=== PATIENT | female | born 1990 | race Caucasian/White ===

== ENCOUNTER 2019-02-17 09:50 | Emergency (ER) | payer MEDICAID, OTHER ==
[~2019-02-17] VITALS: Ht 165.1 cm; Wt 70.8 kg
--- OUTSIDE RECORDS SUMMARY | 2019-02-17 10:00 | XMS REPORT ---
Author Author Gretchen Santos [facility] Address [address] [place], [place] [id number] Care Team Providers Care Reservation Manager Name Role Phone Gretchen Santos PCP Unavailable Allergies and Adverse Reactions Name Reaction Notes codeine sulfate Plan of Treatment Not available. Medications Active Name Start Date Estimated Completion Date SIG Comments ibuprofen 800 mg oral tablet 03/18/2017 take 1 tablet (800 mg) by oral route 3 times per day with food Augmentin 500-125 mg oral tablet 05/21/2017 take 1 tablet by oral route every 12 hours for 10 days Name Start Date Expiration Date SIG Comments Flonase Allergy Relief 50 mcg/actuation nasal spray,suspension 03/08/2015 05/07/2015 inhale 2 puffs by nasal route 2 times a day for 30 days Discontinued Name Start Date Discontinued Date SIG Comments Depo-Provera Intramuscular Suspension 150 mg/mL 03/08/2015 inject 150 mg by intramuscular route every 3 months Valtrex Oral Tablet 500 mg 03/18/2017 take 1 tablet by oral route 2 times a day will use cheaper med acyclovir 400 mg oral tablet 03/18/2017 05/21/2017 take 1 tablet (400 mg) by oral route 2 times per day Metrogel Vaginal 0.75 % vaginal gel 03/18/2017 05/21/2017 insert 1 applicatorful (37.5 mg) by vaginal route once daily at bedtime for 5 days Problem List Description Status Onset Herpes genitalis Active Vital Signs Date Time BP-Sys(mm[Hg] BP-Masha(mm[Hg]) HR(bpm) RR(rpm) Temp WT HT HC BMI BSA BMI Percentile O2 Sat(%) 05/21/2017 2:49:00 PM 118 mmHg 74 mmHg 74 bpm 20 rpm 98.7 F 141.375 lbs 64 in 24.27 kg/m2 1.70 m2 100 % 03/18/2017 4:07:00 PM 113 mmHg 77 mmHg 75 bpm 98 F 139.125 lbs 64 in 23.8805 kg/m 1.6881 m 03/08/2015 2:07:00 PM 110 mmHg 68 mmHg 70 bpm 20 rpm 97.7 F 131.25 lbs 65 in 21.84 kg/m2 1.65 m2 100 % 08/30/2011 2:39:00 PM 122 mmHg 80 mmHg 72 bpm 155 lbs 65 in 25.7931 kg/m 1.7957 m Social History Name Description Comments Single Alcohol Current some day Occassionaly Tobacco Never smoker Student (College) History of Procedures Date Ordered Description Order Status 08/30/2011 12:00 AM HERPES SIMPLEX TYPE 1 TEST Reviewed 03/08/2015 12:00 AM ASSAY OF FREE THYROXINE Reviewed 03/08/2015 12:00 AM ASSAY THYROID STIM HORMONE Reviewed Results Summary Date and Description Results 03/08/2015 5:02 PM FREE T4 1.05 TSH 0.710 uIU/mL History Of Immunizations Not available. History of Past Illness Name Date of Onset Comments Herpes genitalis Anxiety Vulvar Lesion Aug 30 2011 2:49PM Allergic rhinitis Mar 08 2015 2:24PM Cystic acne vulgaris Mar 08 2015 2:24PM Cold intolerance Mar 08 2015 2:24PM Anxiety Mar 08 2015 2:24PM Vaginitis Mar 18 2017 4:10PM Acute vaginitis Mar 18 2017 4:10PM Other specified bacterial agents as the cause of diseases classified elsewhere Mar 18 2017 4:10PM Herpes genitalia Mar 18 2017 4:10PM Dysmenorrhea Mar 18 2017 4:10PM Acute maxillary sinusitis, recurrence not specified May 21 2017 2:56PM Payers Insurance Name Company Name Plan Name Plan Number Policy Number Policy Group Number Start Date BCBS [employer] [place] [id number] N/A [employer] - [facility] - [place] State Plan Amer[employer] - [facility] [place] State Plan [id number] N/A BCBS [employer] [place] [id number] N/A History of Encounters Visit Date Visit Type Provider 05/21/2017 Office visit Gretchen Santos MD 03/18/[address] Aliza Mayers MD 03/08/[address] Bushra Whitney DO 08/30/2011 Office visit Jamar Macedo MD
--- OUTSIDE RECORDS SUMMARY | 2019-02-17 10:00 | XMS REPORT ---
Author Author [facility] Organization [facility] Address [address] [place], [place] [id number] Care Team Providers Care Linux System Admin Name Role Phone PCP Unavailable Allergies and Adverse Reactions Name Reaction Notes codeine sulfate Plan of Treatment Planned Activity Comments Planned Date Planned Time Plan/Goal ASSAY OF FREE THYROXINE 03/08/2015 12:00 AM ASSAY THYROID STIM HORMONE 03/08/2015 12:00 AM Medications Active Name Start Date Estimated Completion Date SIG Comments Valtrex Oral Tablet 500 mg take 1 tablet by oral route 2 times a day Flonase Allergy Relief 50 mcg/actuation nasal spray,suspension 03/08/2015 05/07/2015 inhale 2 puffs by nasal route 2 times a day for 30 days Discontinued Name Start Date Discontinued Date SIG Comments Depo-Provera Intramuscular Suspension 150 mg/mL 03/08/2015 inject 150 mg by intramuscular route every 3 months Problem List Description Status Onset Herpes genitalis Active Vital Signs Date Time BP-Sys(mm[Hg] BP-Masha(mm[Hg]) HR(bpm) RR(rpm) Temp WT HT HC BMI BSA BMI Percentile O2 Sat(%) 03/08/2015 2:07:00 PM 110 mmHg 68 mmHg [...] 12:00 AM HERPES SIMPLEX TYPE 1 TEST Returned 03/08/2015 12:00 AM ASSAY OF FREE THYROXINE Ordered 03/08/2015 12:00 AM ASSAY THYROID STIM HORMONE Ordered Results Summary Not available. History Of Immunizations Not available. History of Past Illness Name Date of Onset Comments Herpes genitalis Vulvar Lesion Aug 30 2011 2:49PM Allergic rhinitis Mar 08 2015 2:24PM Cystic acne vulgaris Mar 08 2015 2:24PM Cold intolerance Mar 08 2015 2:24PM Anxiety Mar 08 2015 2:24PM Payers Insurance Name Company Name Plan Name Plan Number Policy Number Policy Group Number [id number] N/A History of Encounters Visit Date Visit Type Provider 03/08/[address] Bushra Whitney DO 08/30/2011 Office visit Jamar Macedo MD
--- OUTSIDE RECORDS SUMMARY | 2019-02-17 10:00 | XMS REPORT ---
Author Author Aliza Mayers [facility] Address [address] [place], [place] [id number] Care Team Providers Care Chief Diversity Officer Name Role Phone Aliza Mayers PCP Unavailable Allergies and Adverse Reactions Name Reaction Notes codeine sulfate Plan of Treatment Not available. Medications Active Name Start Date Estimated Completion Date SIG Comments acyclovir 400 mg oral tablet 03/18/2017 take 1 tablet (400 mg) by oral route 2 times per day ibuprofen 800 mg oral tablet 03/18/2017 take 1 tablet (800 mg) by oral route 3 times per day with food Metrogel Vaginal 0.75 % vaginal gel 03/18/2017 insert 1 applicatorful (37.5 mg) by vaginal route once daily at bedtime for 5 days Name Start Date Expiration Date SIG [...] times a day will use cheaper med Problem List Description Status Onset Herpes genitalis Active Vital Signs Date Time BP-Sys(mm[Hg] BP-Masha(mm[Hg]) HR(bpm) RR(rpm) Temp WT HT HC BMI BSA BMI Percentile O2 Sat(%) 03/18/2017 4:07:00 PM 113 mmHg 77 mmHg 75 bpm 98 F 139.125 lbs 64 in 23.88 kg/m2 1.69 m2 03/08/2015 2:07:00 PM 110 mmHg 68 mmHg 70 bpm 20 rpm 97.7 F 131.25 lbs 65 in 21.8409 kg/m 1.6524 m 100 % 08/30/2011 2:39:00 PM 122 mmHg 80 mmHg 72 bpm 155 lbs 65 in 25.79 kg/m2 1.80 m2 Social History Name Description Comments Single Alcohol [...] 2017 4:10PM Dysmenorrhea Mar 18 2017 4:10PM Payers Insurance Name Company Name Plan Name Plan Number Policy Number Policy Group Number Start Date [facility] [place] State Plan [facility] State Plan [id number] N/A [facility] [id number] N/A History of Encounters Visit Date Visit Type Provider 03/18/[address] Aliza Mayers MD 03/08/[address] Bushra Whitney DO 08/30/2011 Office visit Jamar Macedo MD
--- OUTSIDE RECORDS SUMMARY | 2019-02-17 10:00 | XMS REPORT ---
Author Author Aliza Mayers [facility] Address [address] [place], [place] [id number] Care Team Providers Care Figure Model Name Role Phone RianaAliza PCP Allergies and Adverse Reactions Name Reaction Notes codeine sulfate Plan of Treatment Planned Activity Comments Planned Date Planned Time Plan/Goal CBC W/ AUTO DIFF (RFLX MAN DIFF IF IND). 02/11/2019 12:00 AM TSH 02/11/2019 12:00 AM Medications Name Start Date Expiration Date SIG Comments Flonase Allergy Relief 50 mcg/actuation nasal spray,suspension 03/08/2015 05/07/2015 inhale 2 puffs by nasal route 2 times a day for 30 days Diflucan 150 mg oral tablet 11/13/2018 11/14/2018 take 1 tablet (150 mg) by oral route once for 1 day Metrogel Vaginal 0.75 % vaginal gel 11/18/2018 11/23/2018 insert 1 applicatorful (37.5 mg) by vaginal route once daily at bedtime for 5 days Discontinued Name Start Date Discontinued Date [...] once daily at bedtime for 5 days Augmentin 500-125 mg oral tablet 05/21/2017 08/05/2017 take 1 tablet by oral route every 12 hours for 10 days ibuprofen 800 mg oral tablet 10/07/2017 02/12/2018 take 1 tablet (800 mg) by oral route 3 times per day with food ibuprofen 800 mg oral tablet 10/14/2018 11/18/2018 take 1 tablet (800 mg) by oral route 3 times per day with food Problem List Description Status Onset Herpes genitalis Active Vital Signs Date Time BP-Sys(mm[Hg] BP-Masha(mm[Hg]) HR(bpm) RR(rpm) Temp WT HT HC BMI BSA BMI Percentile O2 Sat(%) 02/11/2019 3:56:00 PM 109 mmHg 64 mmHg 69 bpm 97.7 F 157.5 lbs 64 in 27.0345 kg/m 1.7961 m 11/18/2018 4:04:00 PM 105 mmHg 67 mmHg 72 bpm 99 F 160.25 lbs 64 in 27.51 kg/m2 1.81 m2 10/07/2017 4:07:00 PM 117 mmHg 74 mmHg 73 bpm 18 rpm 98.4 F 144 lbs 64 in 24.72 kg/m2 1.72 m2 05/21/2017 2:49:00 PM 118 mmHg 74 mmHg 74 bpm 20 rpm 98.7 F 141.375 lbs 64 in 24.2667 kg/m 1.7017 m 100 % 03/18/2017 4:07:00 PM 113 mmHg 77 mmHg 75 bpm 98 F 139.125 lbs 64 in 23.88 kg/m2 1.69 m2 03/08/2015 2:07:00 PM 110 mmHg 68 mmHg 70 bpm 20 rpm 97.7 F 131.25 lbs 65 in 21.8409 kg/m 1.6524 m 100 % 08/30/2011 2:39:00 PM 122 mmHg 80 mmHg 72 bpm 155 lbs 65 in 25.7931 kg/m 1.80 m2 Social History Name Description Comments Single Alcohol Current some day Occassionaly Tobacco Never smoker Student (College) History of Procedures Date Ordered Description Order Status 08/30/2011 12:00 AM HERPES SIMPLEX TYPE 1 TEST Reviewed 10/07/2017 12:00 AM SPECIMEN HANDLING OFFICE-LAB Reviewed 10/07/2017 12:00 AM CYTOPATH C/V THIN LAYER Reviewed 11/18/2018 12:00 AM SYPHILIS TEST NON-TREP QUAL Reviewed 11/18/2018 12:00 AM SYPHILIS TEST NON-TREP QUANT Reviewed 11/18/2018 12:00 AM TREPONEMA PALLIDUM Reviewed 11/18/2018 12:00 AM HTLV/HIV CONFIRMJ ANTIBODY Reviewed 11/18/2018 12:00 AM ACUTE HEPATITIS PANEL Reviewed 11/18/2018 12:00 AM CHLAMYDIA CULTURE Reviewed 11/18/2018 12:00 AM N.GONORRHOEAE DNA AMP PROB Reviewed 11/18/2018 12:00 AM SMEAR WET MOUNT SALINE/INK Reviewed 11/18/2018 12:00 AM DETECT AGENT NOS DNA AMP Reviewed 11/18/2018 12:00 AM TRICHOMONAS VAGINALIS AMPLIF Reviewed 03/08/2015 12:00 AM ASSAY OF FREE THYROXINE Reviewed 03/08/2015 12:00 AM ASSAY THYROID STIM HORMONE Reviewed Results Summary Date and Description Results 03/08/2015 5:02 PM FREE T4 1.05 TSH 0.710 uIU/mL 11/18/2018 5:00 PM HIV AG/AB COMBO 0.11 RPR Non Reactive Hep C Virus Ab <0.1 HBsAg Screen Negative History Of Immunizations Not available. 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 Oct 07 2017 4:09PM STD exposure Nov 18 2018 4:05PM Acute vaginitis Nov 18 2018 4:05PM Other specified bacterial agents as the cause of diseases classified elsewhere Nov 18 2018 4:05PM Encounter for gynecological examination (general) (routine) with abnormal findings Nov 18 2018 4:05PM Fatigue Feb 11 2019 4:00PM Premenstrual dysphoria Feb 11 2019 4:00PM Payers Insurance Name Company Name Plan Name Plan Number Policy Number Policy Group Number Start Date [employer] Better [employer] - [facility] Aetna Better Health - [place] [id number] N/A BCBS [facility] [id number] N/A [employer] - [place] - [place] State Plan Amer[employer] - [facility] State Plan [id number] N/A BCBS [employer] [facility] [place] [id number] N/A History of Encounters Visit Date Visit Type Provider 02/11/[address] Aliza Mayers MD 11/18/2018 Office visit 11/18/[address] Aliza Mayers MD 10/07/[address] Aliza Mayers MD 05/21/2017 Office visit Gretchen Santos MD 03/18/[address] Aliza Mayers MD 03/08/[address] Bushra Whitney DO 08/30/2011 Office visit Jamar Macedo MD
--- OUTSIDE RECORDS SUMMARY | 2019-02-17 10:00 | XMS REPORT ---
Author Author Aliza Mayers Organization [facility] Address [address] [place], [place] [id number] Care Team Providers Care Fold Skiver Name Role Phone Aliza Mayers PCP Allergies and Adverse Reactions Name Reaction Notes codeine sulfate Plan of Treatment Planned Activity Comments Planned Date Planned Time Plan/Goal RPR test with reflex to quantitative RPR and Treponema pallidum antibody assay 11/18/2018 12:00 AM RPR test with reflex to quantitative RPR and Treponema pallidum antibody assay 11/18/2018 12:00 AM RPR test with reflex to quantitative RPR and Treponema pallidum antibody assay 11/18/2018 12:00 AM HIV 1 + 2 ab ser w reflex to Western blot conf 11/18/2018 12:00 AM Hepatitis B and C screen 11/18/2018 12:00 AM Chlamydia 11/18/2018 12:00 AM Gonorrhea 11/18/2018 12:00 AM WET PREP 11/18/2018 12:00 AM TRICHOMONAS AMPLIFIED 11/18/2018 12:00 AM TRICHOMONAS AMPLIFIED 11/18/2018 12:00 AM Medications Active Name Start Date Estimated Completion Date SIG Comments Metrogel Vaginal 0.75 % vaginal gel 11/18/2018 [...] by oral route once for 1 day Discontinued Name Start Date Discontinued Date SIG [...] HC BMI BSA BMI Percentile O2 Sat(%) 11/18/2018 4:04:00 PM 105 mmHg 67 mmHg 72 bpm 99 F 160.25 lbs 64 in 27.5066 kg/m 1.8117 m 10/07/2017 4:07:00 PM 117 mmHg 74 mmHg [...] 12:00 AM CYTOPATH C/V THIN LAYER Reviewed 03/08/2015 12:00 AM ASSAY OF FREE [...] specified May 21 2017 2:56PM 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/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 Oct 07 2017 4:09PM STD exposure Nov 18 2018 4:05PM Acute vaginitis Nov 18 2018 4:05PM Other specified bacterial agents as the cause of diseases classified elsewhere Nov 18 2018 4:05PM Encounter for gynecological examination (general) (routine) with abnormal findings Nov 18 2018 4:05PM Payers Insurance Name Company Name Plan Name Plan Number Policy Number Policy Group Number Start Date Aetna Better Health - [facility] [employer] - [facility] [id number] N/A BCBS [facility] [id number] N/A Amer[employer] - [place] State [place] Amer[employer] - [facility] State Plan [id number] N/A BCBS [facility] [id number] N/A History of Encounters Visit Date Visit Type Provider 11/18/2018 Office visit 11/18/[address] Aliza Mayers MD 10/07/[address] Aliza Mayers MD 05/21/2017 Office visit Gretchen Santos MD 03/18/[address] Aliza Mayers MD 03/08/[address] Bushra Whitney DO 08/30/2011 Office visit Jamar Macedo MD
--- OUTSIDE RECORDS SUMMARY | 2019-02-17 10:00 | XMS REPORT ---
Author Author Aliza Mayers [facility] Address [address] [place] [id number] Care Team Providers Care Geometrician Name Role Phone Aliza Mayers PCP Allergies and Adverse Reactions Name Reaction Notes codeine sulfate Plan of Treatment Not available. 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 Aliza Mayers MD 05/21/2017 Office visit Gretchen Santos MD 03/18/[address] Aliza Mayers MD 03/08/[address] Bushra Whitney DO 08/30/2011 Office visit Jamar Macedo MD
--- OUTSIDE RECORDS SUMMARY | 2019-02-17 10:01 | XMS REPORT ---
Author Author INDIANA ATWOOD Organization [facility] Address [address] [place] [address] Care Team Providers Care Window Glass Cutter Off Name Role Phone INDIANA ATWOOD Unavailable PROBLEMS Type Condition ICD9-CM Code [id number] Code Onset Dates Condition Status SNOMED Code Problem Screening examination for venereal disease V74.5 Active 569298827 Problem Screening for malignant neoplasm of the cervix V76.2 Active 635819757 Problem Other general counseling and advice for contraceptive management V25.09 Active 046909397 Problem Unspecified contraceptive management V25.9 Active 139544468 Problem Special screening examination, human papillomavirus [HPV] V73.81 Active 900894116 Problem General counseling for prescription of oral contraceptives V25.01 Active 064284462758503 Problem Problems related to high-risk sexual behavior V69.2 Active 014872303 Problem Need for prophylactic vaccination and inoculation, Influenza V04.81 Active 733606379 Problem Other specified symptom associated with female genital organs 625.8 Active 033469344 Problem Candidiasis of vulva and vagina 112.1 Active 95966201 Problem Routine gynecological examination V72.31 Active 922873720738907 Problem Unspecified genital herpes 054.10 Active 76875370 Problem examination or test, positive result V72.42 Active 810419196 Problem Leukorrhea, not specified as infective 623.5 Active 441784640 Problem Unspecified vaginitis and vulvovaginitis 616.10 Active 829190061 Problem Acute sinusitis, unspecified 461.9 Active 35496147 Problem Allergic rhinitis due to pollen 477.0 Active 63072498 ALLERGIES No Information ENCOUNTERS Encounter Location Date Diagnosis [facility] [address] [facility] [id number], [place] [address] Jun, [facility] [address] [facility] [id number], [place] [address] Jun, Strep pharyngitis J02.0 and Sore throat J02.9 [facility] [address], [place] [address] 10 Mar, 2018 Acute nasopharyngitis J00 and Cough R05 [facility] [address]005[address], [place] [address] 15 Feb, 2018 Encounter for immunization Z23 [facility] [id number] [place] [address] 14 Oct, 2014 [facility] [id number] [place] [address] Oct, [facility] [id number] [place] [address] Sep, [facility] [id number] [place] [address] Sep, [facility] [id number] [place] [address] Sep, [facility] [id number] [place] [address] Sep, [facility] [id number] [place] [address] Sep, [facility] [id number] [place] [address] Aug, [facility] [id number] [place] [address] Aug, [facility] [address] [place] [address] Jul, [facility] [id number] [place] [address] Jul, [facility] [address], [place] [address] Jun, [facility] [id number] [place] [address] Jun, [facility] [place] [facility] [address] [id number] [place] [address] May, [facility] [place] [facility] [address] [id number] [place] [address] May, [facility] [place] [facility] [address] [facility] [id number] [place] [address] Apr, [facility] [place] [facility] [address] [id number] [place] [address] Apr, [facility] [place] [facility] [address] [id number] [place] [address] Apr, [facility] [place] [facility] [address] [id number] [place] [address] Apr, [facility] [place] [facility] [address] [id number] [place] [address] Apr, [facility] [place] [facility] [address] [id number] [place] [address] Apr, [facility] [place] [facility] [address] [id number] [place] [address] Jan, [facility] [place] [facility] [address] [facility] [id number] [place] [address] Jan, [facility] [place] [facility] [address] [id number], [place] [address] Dec, [facility] [place] [facility] [address] [id number], [place] [address] Dec, [facility] [place] [facility] [address] [id number] [place] [address] Dec, [facility] [address] [id number] [id number] Dec, [facility] [place] [facility] [address] [facility] [id number] [place] [address] Dec, [facility] [id number], [place] [id number] Oct, [facility] [address] [facility] [id number], [place] [address] Oct, [facility] [id number], [place] [id number] Jul, [facility] [address] [facility] [id number], [place] [address] Jul, [facility] [address] [facility] [id number], [place] [address] Apr, [facility] [id number] [place] [id number] Apr, [facility] [address] [id number], [place] [address] Apr, [facility] [address] [place] [address] Apr, [facility] [address] [id number], [place] [address] Apr, [facility] [id number], [place] [id number] Dec, [facility] [address] [id number], [place] [address] Oct, [facility] [address] [id number], [place] [address] Sep, [facility] [place] [facility] [address] [facility] [id number], [place] [address] Sep, [facility] [address] [id number], [place] [address] Aug, [facility] [address] [id number], [place] [address] Aug, [facility] [id number], [place] [id number] Aug, [facility] [address] [facility] [id number], [place] [address] Aug, [facility] [address] [id number], [place] [address] Aug, [facility] [id number][place] [id number] Aug, [facility] [address] [id number], [place] [address] Aug, [facility] [id number] [place] [id number] Aug, [facility] [id number] [place] [address] Apr, [facility] [address] [place] [address] Apr, [facility] [address] [id number], [place] [address] Apr, [facility] [address] [place] [address] Apr, [facility] [address] [id number], [place] [address] Apr, [facility] [id number], [place] [id number] Apr, [facility] [address] [id number], [place] [address] Apr, [facility] [id number], [place] [id number] Feb, [facility] [address] [id number] [address] Feb, [facility] [id number], [place] [id number] Dec, [facility] [address] [id number], [place] [address] Dec, [facility] [address]65100[place], [place] [address] Oct, [facility] [address]65100[place], [place] [address] Sep, [facility] [address]65100[place], [place] [address] Aug, [facility] [id number], [place] [id number] Aug, [id number] [id number] Jul, [address]00565[place] [id number] Jul, [address] [id number], [place] [address] Jul, [facility] [address]00565[place] [id number] Jul, IMMUNIZATIONS No Known Immunizations SOCIAL HISTORY Never Assessed REASON FOR VISIT PLAN OF CARE VITAL SIGNS MEDICATIONS Unknown Medications RESULTS No Results PROCEDURES No Known procedures INSTRUCTIONS MEDICATIONS ADMINISTERED No Known Medications MEDICAL (GENERAL) HISTORY Type Description Date Surgical History appendectomy 1994 Surgical History surgery for broken nose 2002 Surgical History tumor removed from spine at 6 mos old 1988 Surgical History 2010 Hospitalization History surgeries Hospitalization History fluid around lungs 2010
--- OUTSIDE RECORDS SUMMARY | 2019-02-17 10:01 | XMS REPORT ---
Author Author KULWINDER Loredo Organization [facility] Address [address] [place] [address] Care Team Providers Care Pcb Designer Name Role Phone KULWINDER Loredo Unavailable PROBLEMS Type Condition ICD9-CM Code LMF52-RS Code Onset Dates Condition Status SNOMED Code Problem Screening examination for venereal disease V74.5 Active 104422495 Problem Screening for malignant neoplasm of the cervix V76.2 Active 596489705 Problem Other general counseling and advice for contraceptive management V25.09 Active 003448887 Problem Unspecified contraceptive management V25.9 Active 859740027 Problem Special screening examination, human papillomavirus [HPV] V73.81 Active 963739211 Problem General counseling for prescription of oral contraceptives V25.01 Active 993063867277881 Problem Problems related to high-risk sexual behavior V69.2 Active 205783856 Problem Need for prophylactic vaccination and inoculation, Influenza V04.81 Active 965473663 Problem Other specified symptom associated with female genital organs 625.8 Active 484172502 Problem Candidiasis of vulva and vagina 112.1 Active 86679323 Problem Routine gynecological examination V72.31 Active 961440823464062 Problem Unspecified genital herpes 054.10 Active 22662931 Problem examination or test, positive result V72.42 Active 134484055 Problem Leukorrhea, not specified as infective 623.5 Active 999219407 Problem Unspecified vaginitis and vulvovaginitis 616.10 Active 166892495 Problem Acute sinusitis, unspecified 461.9 Active 10082781 Problem Allergic rhinitis due to pollen 477.0 Active 28166707 ALLERGIES No Information ENCOUNTERS Encounter Location Date Diagnosis [facility] [address] [facility] [id number] [address] Jun, [facility] [address] [facility] [id number], [place] [address] Jun, Strep pharyngitis J02.0 and Sore throat J02.9 [facility] [address]00565100[place], [place] [address] 10 Mar, 2018 Acute nasopharyngitis J00 and Cough R05 [facility] [id number] [place] [address] 15 Feb, 2018 Encounter for immunization Z23 [facility] [address] [address] 14 Oct, 2014 [facility] [id number] [place] [address] Oct, [facility] [id number] [place] [address] Sep, [facility] [id number] [place] [address] Sep, [facility] [id number] [place] [address] Sep, [facility] [id number] [place] [address] Sep, [facility] [id number] [place] [address] Sep, [facility] [id number] [place] [address] Aug, [facility] [id number] [place] [address] Aug, [facility] [id number] [place] [address] Jul, [facility] [id number] [place] [address] Jul, [facility] [id number] [place] [address] Jun, [facility] [id number] [place] [address] Jun, [facility] [place] [facility] [address] [id number] [place] [address] May, [facility] [place] [facility] [address] [id number] [place] [address] May, [facility] [place] [facility] [address] [facility] [id number] [place] [address] Apr, [facility] [place] [facility] [address] [id number] [place] [address] Apr, [facility] [place] [facility] [address] [id number] [place] [address] Apr, [facility] [place] [facility] [address] [id number] [place] [address] Apr, [facility] [place] [facility] [address] [facility] [id number] [place] [address] Apr, [facility] [place] [facility] [address] [id number] [place] [address] Apr, [facility] [place] [facility] [address] [facility] [id number] [place] [address] Jan, [facility] [place] [facility] [address] [facility] [id number] [place] [address] Jan, [facility] [place] [facility] [address] [facility] [id number], [place] [address] Dec, [facility] [place] [facility] [address] [facility] [id number], [place] [address] Dec, [facility] [place] [facility] [address] [id number], [place] [address] Dec, [facility] [id number] [place] [address] Dec, [facility] [place] [facility] [address] [facility] [id number] [address] Dec, [facility] [id number] [place] [id number] Oct, [facility] [address] [facility] [id number], [place] [address] Oct, [facility] [id number] [place], [place] [id number] Jul, [facility] [address] [facility] [id number], [place] [address] Jul, [facility] [address] [facility] [id number] [address] Apr, [facility] [id number] [place] [id number] Apr, [facility] [address] [id number], [place] [address] Apr, [facility] [id number] [place] [address] Apr, [facility] [address] [id number], [place] [address] Apr, [facility] [id number] [place] [address] Dec, [facility] [address] [id number], [place] [address] Oct, [facility] [place] [facility] [address] [id number], [place] [address] Sep, [facility] [place] [facility] [address] [facility] [id number], [place] [address] Sep, [facility] [place] [facility] [address] [id number], [place] [address] Aug, [facility] [place] [facility] [address] [facility] [id number], [place] [address] Aug, [facility] [id number] [place], [place] [id number] Aug, [facility] [address] [facility] [id number], [place] [address] Aug, [facility] [address] [facility] [id number] [address] Aug, 2012 [facility] [id number] [place] [id number] Aug, [facility] [address] [facility] [id number] [place] [address] Aug, [facility] [id number] [place] [id number] Aug, [facility] [address] [facility] [id number] [place] [address] Apr, [facility] [id number] [place] [address] Apr, [facility] [address] [facility] [id number], [place] [address] Apr, [facility] [id number] [place] [address] Apr, [facility] [address] [facility] [id number], [place] [address] Apr, [facility] [id number] [place], [place] [id number] Apr, [facility] [address] [facility] [id number][place] [address] Apr, [facility] [address] [id number] [place] [id number] Feb, [facility] [id number] [place], [place] [address] Feb, [facility] [id number] [place] [id number] Dec, [facility] [address] [id number], [place] [address] Dec, [facility] [address]00565100[place], [place] [address] Oct, [facility] [address]00565100[place], [place] [address] Sep, [facility] [address]00565100[place], [place] [address] Aug, [facility] [address]00565100[place] [id number] Aug, [address]00565100[place] [id number] Jul, [address]00565100[place] [id number] Jul, [facility] [address] [id number], [place] [address] Jul, [facility] [address]00565100[place] [id number] Jul, IMMUNIZATIONS No Known Immunizations SOCIAL HISTORY [...]
--- OUTSIDE RECORDS SUMMARY | 2019-02-17 10:01 | XMS REPORT ---
Author Author INDIANA ATWOOD Organization [facility] Address [address] [place] [address] Care Team Providers Care Dog Bather Name Role Phone INDIANA ATWOOD Unavailable PROBLEMS Type Condition ICD9-CM Code [id number] Code Onset Dates Condition Status SNOMED Code Problem Screening examination for venereal disease V74.5 Active 960633248 Problem Screening for malignant neoplasm of the cervix V76.2 Active 122670186 Problem Other general counseling and advice for contraceptive management V25.09 Active 041616708 Problem Unspecified contraceptive management V25.9 Active 418693152 Problem Special screening examination, human papillomavirus [HPV] V73.81 Active 129454548 Problem General counseling for prescription of oral contraceptives V25.01 Active 461434252142334 Problem Problems related to high-risk sexual behavior V69.2 Active 622332057 Problem Need for prophylactic vaccination and inoculation, Influenza V04.81 Active 673724714 Problem Other specified symptom associated with female genital organs 625.8 Active 775004764 Problem Candidiasis of vulva and vagina 112.1 Active 56885047 Problem Routine gynecological examination V72.31 Active 082446027581938 Problem Unspecified genital herpes 054.10 Active 46908945 Problem examination or test, positive result V72.42 Active 556928384 Problem Leukorrhea, not specified as infective 623.5 Active 708102333 Problem Unspecified vaginitis and vulvovaginitis 616.10 Active 505165770 Problem Acute sinusitis, unspecified 461.9 Active 31299285 Problem Allergic rhinitis due to pollen 477.0 Active 04954320 ALLERGIES No Information ENCOUNTERS Encounter Location Date Diagnosis [facility] [address] [facility] [id number] [address] Jun, [facility] [address] [facility] [id number], [place] [address] Jun, Strep pharyngitis J02.0 and Sore throat J02.9 [facility] [address] [address] 10 Mar, 2018 Acute nasopharyngitis J00 and Cough R05 [facility] [address]005[address], [place] [address] 15 Feb, 2018 Encounter for immunization Z23 [facility] [id number] [place] [address] 14 Oct, 2014 [facility] [id number] [place] [address] Oct, [facility] [id number] [place] [address] Sep, [facility] [id number] [place] [address] Sep, [facility] [id number] [place] [address] Sep, [facility] [id number] [place] [address] Sep, [facility] [id number] [place] [address] Sep, [facility] [id number] [place] [address] Aug, [facility] [id number] [place] [address] Aug, [facility] [address] [place] [address] Jul, [facility] [id number] [place] [address] Jul, [facility] [address], [place] [address] Jun, [facility] [id number] [place] [address] Jun, [facility] [place] [facility] [address] [id number] [place] [address] May, [facility] [place] [facility] [address] [id number] [place] [address] May, [facility] [place] [facility] [address] [facility] [id number] [place] [address] Apr, [facility] [place] [facility] [address] [id number] [place] [address] Apr, [facility] [place] [facility] [address] [id number] [place] [address] Apr, [facility] [place] [facility] [address] [id number] [place] [address] Apr, [facility] [place] [facility] [address] [id number] [place] [address] Apr, [facility] [place] [facility] [address] [id number] [place] [address] Apr, [facility] [place] [facility] [address] [id number] [place] [address] Jan, [facility] [place] [facility] [address] [facility] [id number] [place] [address] Jan, [facility] [place] [facility] [address] [id number], [place] [address] Dec, [facility] [place] [facility] [address] [id number][place] [address] Dec, [facility] [place] [facility] [address] [id number] [place] [address] Dec, [facility] [address] [id number] [id number] Dec, [facility] [place] [facility] [address] [facility] [id number] [place] [address] Dec, [facility] [id number][place] [id number] Oct, [facility] [address] [facility] [id number], [place] [address] Oct, [facility] [id number][place] [id number] Jul, [facility] [address] [facility] [id number], [place] [address] Jul, [facility] [address] [facility] [id number], [place] [address] Apr, [facility] [id number] [place] [id number] Apr, [facility] [address] [id number] [address] Apr, [facility] [address] [place] [address] Apr, [facility] [address] [id number], [place] [address] Apr, [facility] [id number][place] [id number] Dec, [facility] [address] [id number], [place] [address] Oct, [facility] [address] [id number], [place] [address] Sep, [facility] [place] [facility] [address] [facility] [id number], [place] [address] Sep, [facility] [address] [id number], [place] [address] Aug, [facility] [address] [id number], [place] [address] Aug, [facility] [id number], [place] [id number] Aug, [facility] [address] [facility] [id number], [place] [address] Aug, [facility] [address] [id number], [place] [address] Aug, [facility] [id number], [place] [id number] Aug, [facility] [address] [id number], [place] [address] Aug, [facility] [id number] [place] [id number] Aug, [facility] [id number] [place] [address] Apr, [facility] [address] [place] [address] Apr, [facility] [address] [id number], [place] [address] Apr, [facility] [address] [place] [address] Apr, [facility] [address] [id number], [place] [address] Apr, [facility] [id number], [place] [address] Apr, [facility] [address] [id number], [place] [address] Apr, [facility] [id number], [place] [id number] Feb, [facility] [address] [id number] [address] Feb, [facility] [id number], [place] [id number] Dec, [facility] [address] [id number], [place] [address] Dec, [facility] [address]65100[place], [place] [address] Oct, [facility] [address]00565100[place], [place] [address] Sep, [facility] [address]00565100[place], [place] [address] Aug, [facility] [id number], [place] [id number] Aug, [address]00565[place] [id number] Jul, [address]00565[place] [id number] Jul, [facility] [address] [id number], [place] [address] Jul, [facility] [address] [place] [address] [id number] Jul, IMMUNIZATIONS No Known Immunizations SOCIAL HISTORY Never Assessed REASON FOR VISIT PLAN OF CARE VITAL SIGNS Height 65 in 2014-08-19 Weight 132.9 lbs 2014-08-19 Temperature 98 degrees Fahrenheit 2014-08-19 Heart Rate 84 bpm 2014-08-19 Respiratory Rate 18 2014-08-19 Blood pressure systolic 118 mmHg 2014-08-19 Blood pressure diastolic 64 mmHg 2014-08-19 MEDICATIONS Unknown Medications RESULTS No Results PROCEDURES No Known procedures INSTRUCTIONS MEDICATIONS ADMINISTERED No Known Medications MEDICAL (GENERAL) HISTORY Type Description Date Surgical History appendectomy 1994 Surgical History surgery for broken nose 2002 Surgical History tumor removed from spine at 6 mos old 1988 Surgical History 2010 Hospitalization History surgeries Hospitalization History fluid around lungs 2010
--- OUTSIDE RECORDS SUMMARY | 2019-02-17 10:01 | XMS REPORT ---
Author Author KULWINDER Loredo Organization [facility] Address [address] [place] [address] Care Team Providers Care Computer Patternmaker Name Role Phone KULWINDER Loredo Unavailable PROBLEMS Type Condition ICD9-CM Code [id number] Code Onset Dates Condition Status SNOMED Code Problem Screening examination for venereal disease V74.5 Active 121442307 Problem Screening for malignant neoplasm of the cervix V76.2 Active 241101888 Problem Other general counseling and advice for contraceptive management V25.09 Active 167866661 Problem Unspecified contraceptive management V25.9 Active 886907585 Problem Special screening examination, human papillomavirus [HPV] V73.81 Active 093913819 Problem General counseling for prescription of oral contraceptives V25.01 Active 078355868316364 Problem Problems related to high-risk sexual behavior V69.2 Active 695597089 Problem Need for prophylactic vaccination and inoculation, Influenza V04.81 Active 437683619 Problem Other specified symptom associated with female genital organs 625.8 Active 429852843 Problem Candidiasis of vulva and vagina 112.1 Active 85953039 Problem Routine gynecological examination V72.31 Active 291939969474734 Problem Unspecified genital herpes 054.10 Active 07510908 Problem examination or test, positive result V72.42 Active 322815337 Problem Leukorrhea, not specified as infective 623.5 Active 811164922 Problem Unspecified vaginitis and vulvovaginitis 616.10 Active 618672784 Problem Acute sinusitis, unspecified 461.9 Active 55399142 Problem Allergic rhinitis due to pollen 477.0 Active 10205002 ALLERGIES No Information ENCOUNTERS Encounter Location Date Diagnosis [facility] [address] [facility] [id number], [place] [address] Jun, [facility] [address] [facility] [id number], [place] [address] Jun, Strep pharyngitis J02.0 and Sore throat J02.9 [facility] [address]00565[place], [place] [address] 10 Mar, 2018 Acute nasopharyngitis J00 and Cough R05 [facility] [id number] [place] [address] 15 Feb, 2018 Encounter for immunization Z23 [facility] [address] [address] 14 Oct, 2014 [facility] [id number] [place] [address] Oct, [facility] [id number] [place] [address] Sep, [facility] [id number] [place] [address] Sep, [facility] [id number] [place] [address] Sep, [facility] [id number] [place] [address] Sep, [facility] [id number] [place] [address] Sep, [facility] [id number] [place] [address] Aug, [facility] [id number] [place] [address] Aug, [facility] [id number] [place] [address] Jul, [facility] [id number] [place] [address] Jul, [facility] [id number] [place] [address] Jun, [facility] [id number] [place] [address] Jun, [facility] [place] [facility] [address] [id number] [place] [address] May, [facility] [place] [facility] [address] [id number] [place] [address] May, [facility] [place] [facility] [address] [facility] [id number] [place] [address] Apr, [facility] [place] [facility] [address] [id number] [place] [address] Apr, [facility] [place] [facility] [address] [id number] [place] [address] Apr, [facility] [place] [facility] [address] [id number] [place] [address] Apr, [facility] [place] [facility] [address] [facility] [id number] [place] [address] Apr, [facility] [place] [facility] [address] [id number] [place] [address] Apr, [facility] [place] [facility] [address] [facility] [id number] [place] [address] Jan, [facility] [place] [facility] [address] [facility] [id number] [place] [address] Jan, [facility] [place] [facility] [address] [facility] [id number], [place] [address] Dec, [facility] [place] [facility] [address] [facility] [id number], [place] [address] Dec, [facility] [place] [facility] [address] [id number], [place] [address] Dec, [facility] [id number], [place] [address] Dec, [facility] [place] [facility] [address] [facility] [id number], [place] [address] Dec, [facility] [id number][place] [address] Oct, [facility] [address] [facility] [id number], [place] [address] Oct, [facility] [id number], [place] [id number] Jul, [facility] [address] [facility] [id number], [place] [address] Jul, [facility] [address] [facility] [id number], [place] [address] Apr, [facility] [id number], [place] [address] Apr, [facility] [address] [id number], [place] [address] Apr, [facility] [id number] [place] [address] Apr, [facility] [address] [id number], [place] [address] Apr, [facility] [id number], [place] [id number] Dec, [facility] [address] [id number], [place] [address] Oct, [facility] [place] [facility] [address] [id number], [place] [address] Sep, [facility] [place] [facility] [address] [facility] [id number], [place] [address] Sep, [facility] [place] [facility] [address] [id number], [place] [address] Aug, [facility] [place] [facility] [address] [facility] [id number], [place] [address] Aug, [facility] [id number], [place] [id number] Aug, [facility] [address] [facility] [id number], [place] [address] Aug, [facility] [address] [facility] [id number], [place] [address] Aug, 2012 [facility] [id number] [place] [id number] Aug, [facility] [address] [facility] [id number] [place] [address] Aug, [facility] [id number] [place] [id number] Aug, [facility] [address] [facility] [id number] [place] [address] Apr, [facility] [id number] [place] [address] Apr, [facility] [address] [facility] [id number], [place] [address] Apr, [facility] [id number] [place] [address] Apr, [facility] [address] [facility] [id number], [place] [address] Apr, [facility] [id number], [place] [id number] Apr, [facility] [address] [facility] [id number], [place] [address] Apr, [facility] [address] [id number][place] [id number] Feb, [facility] [id number], [place] [id number] Feb, [facility] [id number] [place] [id number] Dec, [facility] [address] [id number], [place] [address] Dec, [facility] [address]00565100[place], [place] [address] Oct, [facility] [address]00565100[place], [place] [address] Sep, [facility] [address]00565100[place], [place] [address] Aug, [facility] [address]00565[place], [place] [id number] Aug, [address]00565100[place], [place] [id number] Jul, [address]00565100[place], [place] [id number] Jul, [facility] [address] [id number], [place] [address] Jul, [facility] [address]00565100[place], [place] [id number] Jul, IMMUNIZATIONS No Known Immunizations SOCIAL HISTORY [...]
--- OUTSIDE RECORDS SUMMARY | 2019-02-17 10:01 | XMS REPORT ---
Author Author Aliza Mayers [facility] Address [address] [place], [place] [address] Care Team Providers Care Schedule Announcer Name Role Phone Aliza Mayers PCP Allergies and Adverse Reactions Name Reaction Notes codeine sulfate Plan of Treatment Planned Activity Comments Planned Date Planned Time Plan/Goal Pap smear auto thin prep w manual MD screen 10/07/2017 12:00 AM Medications Active Name Start Date Estimated Completion Date SIG Comments ibuprofen 800 mg oral tablet 10/07/2017 take 1 tablet (800 mg) by oral route 3 times per day with food Name Start Date Expiration Date SIG Comments [...] route every 12 hours for 10 days Problem List Description Status Onset Herpes [...] specified May 21 2017 2:56PM Encntr for process eng exam (general) (routine) w/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 Oct 07 2017 4:09PM Payers Insurance Name Company Name Plan Name Plan Number Policy Number Policy Group Number Start Date BCBS [facility] [id number] N/A [employer] - [facility] [place] State Plan [facility] State Plan [id number] N/A [employer] [facility] [id number] N/A History of Encounters Visit Date Visit Type Provider 10/07/[address] Aliza Mayers MD 05/21/2017 Office visit Gretchen Santos MD 03/18/[address] Aliza Mayers MD 03/08/[address] Bushra Whitney DO 08/30/2011 Office visit Jamar Macedo MD
--- OUTSIDE RECORDS SUMMARY | 2019-02-17 10:02 | XMS REPORT ---
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 Name Role Phone Migration, Doctor Unavailable Unavailable PROBLEMS Type Condition ICD9-CM Code PHM42-QZ Code Onset Dates Condition Status SNOMED Code Problem Screening examination for venereal disease V74.5 Active 184043034 Problem Screening for malignant neoplasm of the cervix V76.2 Active 504694359 Problem Other general counseling and advice for contraceptive management V25.09 Active 577402371 Problem Unspecified contraceptive management V25.9 Active 146582945 Problem Special screening examination, human papillomavirus [HPV] V73.81 Active 079098919 Problem General counseling for prescription of oral contraceptives V25.01 Active 804424482520557 Problem Problems related to high-risk sexual behavior V69.2 Active 940621810 Problem Need for prophylactic vaccination and inoculation, Influenza V04.81 Active 678776946 Problem Other specified symptom associated with female genital organs 625.8 Active 708934409 Problem Candidiasis of vulva and vagina 112.1 Active 24720228 Problem Routine gynecological examination V72.31 Active 074210444304259 Problem Unspecified genital herpes 054.10 Active 74618437 Problem examination or test, positive result V72.42 Active 672887619 Problem Leukorrhea, not specified as infective 623.5 Active 274040539 Problem Unspecified vaginitis and vulvovaginitis 616.10 Active 224405057 Problem Acute sinusitis, unspecified 461.9 Active 54255432 Problem Allergic rhinitis due to pollen 477.0 Active 17191505 ALLERGIES No Information ENCOUNTERS Encounter Location Date Diagnosis [facility] [address] [address] Jun, [facility] [id number] [address] Jun, Strep pharyngitis J02.0 and Sore throat J02.9 [facility] [address] [address] Mar, Acute nasopharyngitis J00 and Cough R05 [facility] [id number] [place] [address] 15 Feb, 2018 Encounter for immunization Z23 [facility] [id number] [place] [address] 14 Oct, 2014 [facility] [address] [address] Oct, [facility] [id number] [place] [address] Sep, [facility] [id number] [place] [address] Sep, [facility] [id number] [place] [address] Sep, [facility] [id number] [place] [address] Sep, [facility] [id number] [place] [address] Sep, [facility] [id number] [place] [address] Aug, [facility] [id number] [place] [address] Aug, [facility] [id number] [place] [address] Jul, [facility] [id number] [place] [address] Jul, [facility] [id number] [place] [address] Jun, [facility] [id number] [place] [address] Jun, [facility] [id number] [place] [address] May, [facility] [place] [facility] [address] [id number] [place] [address] May, [facility] [place] [facility] [address] [id number] [address] Apr, [facility] [place] [facility] [address] [facility] [id number] [place] [address] Apr, [facility] [place] [facility] [address] [id number] [address] Apr, [facility] [place] [facility] [address] [id number] [place] [address] Apr, [facility] [place] [facility] [address] [id number] [place] [address] Apr, [facility] [place] [facility] [address] [id number] [address] Apr, [facility] [place] [facility] [address] [id number] [address] Jan, [facility] [place] [facility] [address] [id number] [address] Jan, [facility] [place] [facility] [address] [facility] [id number] [address] Dec, [facility] [place] [facility] [address] [id number] [address] Dec, [facility] [place] [facility] [address] [facility] [id number] [address] Dec, [facility] [address] [facility] [id number][place] [id number] Dec, [facility] [place] [facility] [address] [id number] [address] Dec, [facility] [address] [facility] [id number], [place] [id number] Oct, [facility] [place] [facility] [address] [facility] [id number] [address] Oct, [facility] [address] [id number][place] [address] Jul, [facility] [address] [facility] [id number] [place] [address] Jul, [facility] [address] [facility] [id number] [address] Apr, [facility] [address] [id number][place] [address] Apr, [facility] [address] [facility] [id number] [place] [address] Apr, [facility] [address] [id number] [address] Apr, [facility] [address] [id number] [address] Apr, [facility] [address] [id number][place] [id number] Dec, [facility] [address] [id number] [address] Oct, [facility] [address] [id number] [address] Sep, [facility] [address] [facility] [id number] [address] Sep, [facility] [address] [facility] [id number] [address] Aug, [facility] [place] [facility] [address] [facility] [id number] [address] Aug, [facility] [address] [id number], [place] [address] Aug, [facility] [address] [id number] [address] 15 Aug, 2012 [facility] [address] [facility] [id number] [place] [address] Aug, 2012 [facility] [address] [id number][place] [id number] Aug, [facility] [address] [facility] [id number] [place] [address] Aug, [facility] [id number] [place] [id number] Aug, [facility] [id number] [place] [address] Apr, [facility] [id number] [place] [address] Apr, [facility] [id number] [place] [address] Apr, [facility] [address] [id number] [address] Apr, [facility] [id number] [place] [address] Apr, [facility] [address] [id number], [place] [id number] Apr, [facility] [address] [id number] [address] Apr, [facility] [id number], [place] [address] Feb, [facility] [id number], [place] [id number] Feb, [facility] [id number], [place] [address] Dec, [facility] [address] [id number] [address] Dec, [facility] [address] [id number] [address] Oct, [facility] [address] [address] Sep, [facility] [address] [id number] [address] Aug, [address]00565100[place] [id number] Aug, [id number] [id number] Jul, [address]00565100[place] [address] Jul, [facility] [address] [id number] [address] Jul, [address]00565100[place] [id number] Jul, IMMUNIZATIONS No Known Immunizations SOCIAL HISTORY Never Assessed REASON FOR VISIT EMR-[facility] PLAN OF CARE VITAL SIGNS MEDICATIONS Unknown [...]
--- OUTSIDE RECORDS SUMMARY | 2019-02-17 10:02 | XMS REPORT ---
Author Author Migration, Doctor Organization [facility] Address Unknown Phone Unavailable Care Team Providers Care Emergency Response Coordinator Name Role Phone Migration, Doctor Unavailable Unavailable PROBLEMS Type Condition ICD9-CM Code FQD66-MM Code Onset Dates Condition Status SNOMED Code Problem Screening examination for venereal disease V74.5 Active 225132259 Problem Screening for malignant neoplasm of the cervix V76.2 Active 868108223 Problem Other general counseling and advice for contraceptive management V25.09 Active 292679162 Problem Unspecified contraceptive management V25.9 Active 667479674 Problem Special screening examination, human papillomavirus [HPV] V73.81 Active 209624687 Problem General counseling for prescription of oral contraceptives V25.01 Active 878753919762046 Problem Problems related to high-risk sexual behavior V69.2 Active 389294777 Problem Need for prophylactic vaccination and inoculation, Influenza V04.81 Active 053759109 Problem Other specified symptom associated with female genital organs 625.8 Active 425670881 Problem Candidiasis of vulva and vagina 112.1 Active 35586802 Problem Routine gynecological examination V72.31 Active 670440329467504 Problem Unspecified genital herpes 054.10 Active 00498700 Problem examination or test, positive result V72.42 Active 697580717 Problem Leukorrhea, not specified as infective 623.5 Active 112083210 Problem Unspecified vaginitis and vulvovaginitis 616.10 Active 286232602 Problem Acute sinusitis, unspecified 461.9 Active 53616091 Problem Allergic rhinitis due to pollen 477.0 Active 21107361 ALLERGIES No Information ENCOUNTERS Encounter Location Date Diagnosis [facility] [address], [place] [address] Jun, [facility] [address], [place] [address] Jun, Strep pharyngitis J02.0 [address] throat [address]02.9 [facility] [address], [place] [address] Mar, Acute nasopharyngitis J00 and Cough R05 [facility] [id number] [place] [address] 15 Feb, 2018 Encounter for immunization Z23 [facility] [id number] [place] [address] 14 Oct, 2014 [facility] [address] [address] Oct, [facility] [id number] [place] [address] Sep, [facility] [id number] [place] [address] Sep, [facility] [id number] [place] [address] Sep, [facility] [id number] [place] [address] Sep, [facility] [id number] [place] [address] Sep, [facility] [id number] [place] [address] Aug, [facility] [address] [place] [address] Aug, [facility] [id number] [place] [address] Jul, [facility] [address] [place] [address] Jul, [facility] [id number] [place] [address] Jun, [facility] [id number] [place] [address] Jun, [facility] [id number] [place] [address] May, [facility] [place] [facility] [address] [id number] [place] [address] May, [facility] [place] [facility] [address] [id number], [place] [address] Apr, [facility] [place] [facility] [address] [facility] [id number] [place] [address] Apr, [facility] [place] [facility] [address] [id number], [place] [address] Apr, [facility] [place] [facility] [address] [id number] [place] [address] Apr, [facility] [place] [facility] [address] [id number] [place] [address] Apr, [facility] [place] [facility] [address] [id number], [place] [address] Apr, [facility] [place] [facility] [address] [id number], [place] [address] Jan, [facility] [place] [facility] [address] [id number] [address] Jan, [facility] [place] [facility] [address] [facility] [id number][place] [address] Dec, [facility] [place] [facility] [address] [id number][place] [address] Dec, [facility] [place] [facility] [address] [facility] [id number], [place] [address] Dec, [facility] [address] [facility] [id number] [place] [address] Dec, [facility] [place] [facility] [address] [id number] [address] Dec, [facility] [address] [facility] [id number] [place] [id number] Oct, [facility] [place] [facility] [address] [facility] [id number], [place] [address] Oct, [facility] [address] [id number] [place] [address] Jul, [facility] [address] [facility] [id number][place] [address] Jul, [facility] [address] [facility] [id number], [place] [address] Apr, [facility] [address] [id number] [place] [address] Apr, [facility] [address] [facility] [id number] [place] [address] Apr, [facility] [address] [id number], [place] [address] Apr, [facility] [address] [id number], [place] [address] Apr, [facility] [address] [id number] [place] [address] Dec, [facility] [address] [id number], [place] [address] Oct, [facility] [address] [id number], [place] [address] Sep, [facility] [address] [facility] [id number], [place] [address] Sep, [facility] [address] [facility] [id number] [address] Aug, [facility] [place] [facility] [address] [facility] [id number], [place] [address] Aug, [facility] [address] [id number] [place] [address] Aug, [facility] [address] [id number] [address] 15 Aug, 2012 [facility] [address] [facility] [id number], [place] [address] Aug, 2012 [facility] [address] [id number] [place] [id number] Aug, [facility] [address] [facility] [id number], [place] [address] Aug, [facility] [id number] [place] [id number] Aug, [facility] [id number] [place] [address] Apr, [facility] [id number] [place] [address] Apr, [facility] [id number] [place] [address] Apr, [facility] [address] [id number], [place] [address] Apr, [facility] [id number] [place] [address] Apr, [facility] [address] [id number] [place] [id number] Apr, [facility] [address] [id number], [place] [address] Apr, [facility] [id number] [place] [id number] Feb, [facility] [id number] [place] [address] Feb, [facility] [id number] [place] [address] Dec, [facility] [address] [id number], [place] [address] Dec, [facility] [address] [id number], [place] [address] Oct, [facility] [address]100[place], [place] [address] Sep, [facility] [address] [id number], [place] [address] Aug, [address]00565100[place] [address] Aug, [id number] [id number] Jul, [address]00565100[place] [id number] Jul, [facility] [address] [id number], [place] [address] Jul, [address]00565100[place] [id number] Jul, IMMUNIZATIONS No Known Immunizations SOCIAL HISTORY Never Assessed REASON FOR VISIT [place] [place] VITAL SIGNS MEDICATIONS Unknown [...]
--- OUTSIDE RECORDS SUMMARY | 2019-02-17 10:02 | XMS REPORT ---
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 Name Role Phone Migration, Doctor Unavailable Unavailable PROBLEMS Type Condition ICD9-CM Code CWF29-XC Code Onset Dates Condition Status SNOMED Code Problem Screening examination for venereal disease V74.5 Active 543691782 Problem Screening for malignant neoplasm of the cervix V76.2 Active 034573554 Problem Other general counseling and advice for contraceptive management V25.09 Active 734011513 Problem Unspecified contraceptive management V25.9 Active 063988162 Problem Special screening examination, human papillomavirus [HPV] V73.81 Active 732927334 Problem General counseling for prescription of oral contraceptives V25.01 Active 444664259363428 Problem Problems related to high-risk sexual behavior V69.2 Active 402790265 Problem Need for prophylactic vaccination and inoculation, Influenza V04.81 Active 919264864 Problem Other specified symptom associated with female genital organs 625.8 Active 994923626 Problem Candidiasis of vulva and vagina 112.1 Active 54174492 Problem Routine gynecological examination V72.31 Active 128642775291442 Problem Unspecified genital herpes 054.10 Active 69005067 Problem examination or test, positive result V72.42 Active 855731947 Problem Leukorrhea, not specified as infective 623.5 Active 351521521 Problem Unspecified vaginitis and vulvovaginitis 616.10 Active 162642427 Problem Acute sinusitis, unspecified 461.9 Active 63708927 Problem Allergic rhinitis due to pollen 477.0 Active 25862500 ALLERGIES Substance Reaction Event Type Date Status Codeine Unknown Drug Allergy Oct, Active ENCOUNTERS Encounter Location Date Diagnosis [facility] [address] [facility] [id number] [address] Jun, [facility] [address] [facility] [id number] [place] [address] Jun, Strep pharyngitis J02.0 and Sore throat J02.9 [facility] [address] [address] 10 Mar, 2018 Acute nasopharyngitis J00 and Cough R05 [facility] [address] [id number] [address] 15 Feb, 2018 Encounter for immunization Z23 [facility] [id number] [place] [address] 14 Oct, 2014 [facility] [id number] [place] [address] Oct, [facility] [id number] [place] [address] Sep, [facility] [id number] [place] [address] Sep, [facility] [id number] [place] [address] Sep, [facility] [id number] [place] [address] Sep, [facility] [id number] [place] [address] Sep, [facility] [address] [address] Aug, [facility] [address] [address] Aug, [facility] [address] [address] Jul, [facility] [address] [address] Jul, [facility] [address] [address] Jun, [facility] [address] [address] Jun, [facility] [place] [facility] [address] [id number] [place] [address] May, [facility] [place] [facility] [address] [id number] [place] [address] May, [facility] [place] [facility] [address] [id number] [place] [address] Apr, [facility] [place] [facility] [address] [id number] [place] [address] Apr, [facility] [place] [facility] [address] [id number] [place] [address] Apr, [facility] [place] [facility] [address] [id number] [place] [address] Apr, [facility] [place] [facility] [address] [facility] [id number] [place] [address] Apr, [facility] [place] [facility] [address] [id number] [place] [address] Apr, [facility] [place] [facility] [address] [id number] [place] [address] Jan, [facility] [place] [facility] [address] [facility] [id number] [place] [address] Jan, [facility] [place] [facility] [address] [facility] [id number] [place] [address] Dec, [facility] [place] [facility] [address] [id number] [place] [address] Dec, [facility] [place] [facility] [address] [id number] [place] [address] Dec, Kamran POSADAS [address] [facility] [id number][place] [id number] Dec, [facility] [place] [facility] [address] [facility] [id number] [place] [address] Dec, Kamran POSADAS [address] [facility] [id number][place] [id number] Oct, [facility] [address] [facility] [id number] [place] [address] Oct, [facility] [address] [id number] [id number] Jul, [facility] [address] [id number] [address] Jul, [facility] [address] [facility] [id number] [place] [address] Apr, [facility] [id number], [place] [id number] Apr, [facility] [address] [id number] [address] Apr, [facility] [address] [id number] [address] Apr, [facility] [place] [facility] [address] [id number] [address] Apr, [facility] [id number], [place] [address] Dec, [facility] [place] [facility] [address] [id number] [address] Oct, [facility] [address] [id number] [address] Sep, [facility] [place] [facility] [address] [id number] [address] Sep, [facility] [place] [facility] [address] [facility] [id number] [place] [address] Aug, [facility] [place] [facility] [address] [facility] [id number] [place] [address] Aug, [facility] [id number], [place] [id number] Aug, [facility] [place] [facility] [address] [facility] [id number] [place] [address] 15 Aug, 2012 [facility] [address] [facility] [id number] [place] [address] Aug, 2012 [facility] [address] [id number][place] [address] Aug, [facility] [address] [facility] [id number] [place] [address] Aug, 2012 [facility] [id number] [place] [id number] Aug, [facility] [address] [facility] [id number] [place] [address] Apr, [facility] [address] [id number] [address] Apr, [facility] [address] [facility] [id number] [place] [address] Apr, [facility] [address] [id number] [address] Apr, [facility] [address] [id number] [address] Apr, [facility] [address] [id number], [place] [id number] Apr, [facility] [address] [facility] [id number] [place] [address] Apr, [facility] [address] [id number][place] [address] Feb, [facility] [address] [id number], [place] [id number] Feb, [facility] [address] [id number], [place] [address] Dec, [facility] [address] [id number] [address] Dec, [facility] [address] [id number] [address] Oct, [facility] [address]00565100[place] [address] Sep, [facility] [address]00565100[place] [address] Aug, [facility] [id number], [place] [address] Aug, [facility] [id number], [place] [id number] Jul, [facility] [id number], [place] [address] Jul, [facility] [address]00565100[place] [address] Jul, [facility] [id number], [place] [id number] Jul, IMMUNIZATIONS No Known Immunizations SOCIAL HISTORY Never Assessed REASON FOR VISIT [facility] [place] OF CARE VITAL SIGNS MEDICATIONS Medication Instructions Dosage Frequency Start Date End Date Duration Status Flagyl 500 mg 1 tablet by Oral route 2 times per day for 7 days Sep, Active Augmentin 875-125 mg 1 tablet by Oral route 2 times per day for 14 day(s) Jul, Active Diflucan 150 mg take 1 tablet by Oral route once 1 time per day for 1 day Dec, Active Metronidazole 500 mg 1 tablet by Oral route 2 times per day for 7 days Apr, Active Gabapentin 300 mg Take 1 capsule by Oral route 3 times per day for 30 days Dec, Active RESULTS No Results PROCEDURES No Known procedures INSTRUCTIONS MEDICATIONS ADMINISTERED No Known Medications MEDICAL (GENERAL) HISTORY Type Description Date Surgical History appendectomy 1994 Surgical History surgery for broken nose 2002 Surgical History tumor removed from spine at 6 mos old 1988 Surgical History 2010 Hospitalization History surgeries Hospitalization History fluid around lungs 2010
--- OUTSIDE RECORDS SUMMARY | 2019-02-17 10:02 | XMS REPORT ---
Author Author Migration, Doctor Organization [facility] Address Unknown Phone Unavailable Care Team Providers Care Filter Washer Name Role Phone Migration, Doctor Unavailable Unavailable PROBLEMS Type Condition ICD9-CM Code JIM71-VO Code Onset Dates Condition Status SNOMED Code Problem Screening examination for venereal disease V74.5 Active 249065824 Problem Screening for malignant neoplasm of the cervix V76.2 Active 367794469 Problem Other general counseling and advice for contraceptive management V25.09 Active 026418416 Problem Unspecified contraceptive management V25.9 Active 740986206 Problem Special screening examination, human papillomavirus [HPV] V73.81 Active 648593739 Problem General counseling for prescription of oral contraceptives V25.01 Active 299754112309190 Problem Problems related to high-risk sexual behavior V69.2 Active 988540761 Problem Need for prophylactic vaccination and inoculation, Influenza V04.81 Active 047496557 Problem Other specified symptom associated with female genital organs 625.8 Active 860554433 Problem Candidiasis of vulva and vagina 112.1 Active 41650131 Problem Routine gynecological examination V72.31 Active 939923443755917 Problem Unspecified genital herpes 054.10 Active 07593567 Problem examination or test, positive result V72.42 Active 031807428 Problem Leukorrhea, not specified as infective 623.5 Active 126395288 Problem Unspecified vaginitis and vulvovaginitis 616.10 Active 484381778 Problem Acute sinusitis, unspecified 461.9 Active 65365799 Problem Allergic rhinitis due to pollen 477.0 Active 45093521 ALLERGIES No Information ENCOUNTERS Encounter Location Date Diagnosis [facility] [address]00565100[place], [place] [address] Jun, [facility] [address]00565100[place], [place] [address] Jun, Strep pharyngitis J02.0 and Sore throat J02.9 [facility] [address]00565100[place], [place] [address] Mar, Acute nasopharyngitis J00 and Cough R05 [facility] [id number] [place] [address] 15 Feb, 2018 Encounter for immunization Z23 [facility] [id number] [place] [address] 14 Oct, 2014 [facility] [address] [address] Oct, [facility] [id number] [place] [address] Sep, [facility] [id number] [place] [address] Sep, [facility] [id number] [place] [address] Sep, [facility] [id number] [place] [address] Sep, [facility] [id number] [place] [address] Sep, [facility] [id number] [place] [address] Aug, [facility] [id number] [place] [address] Aug, [facility] [id number] [place] [address] Jul, [facility] [id number] [place] [address] Jul, [facility] [id number] [place] [address] Jun, [facility] [id number] [place] [address] Jun, [facility] [id number] [place] [address] May, [facility] [place] [facility] [address] [id number] [place] [address] May, [facility] [place] [facility] [address] [id number], [place] [address] Apr, [facility] [place] [facility] [address] [facility] [id number] [place] [address] Apr, [facility] [place] [facility] [address] [id number], [place] [address] Apr, [facility] [place] [facility] [address] [id number] [place] [address] Apr, [facility] [place] [facility] [address] [id number] [place] [address] Apr, [facility] [place] [facility] [address] [id number], [place] [address] Apr, [facility] [place] [facility] [address] [id number], [place] [address] Jan, [facility] [place] [facility] [address] [id number], [place] [address] Jan, [facility] [place] [facility] [address] [facility] [id number], [place] [address] Dec, [facility] [place] [facility] [address] [id number], [place] [address] Dec, [facility] [place] [facility] [address] [facility] [id number], [place] [address] Dec, [facility] [address] [facility] [id number] [id number] Dec, [facility] [place] [facility] [address] [id number], [place] [address] Dec, [facility] [address] [facility] [id number][place] [address] Oct, [facility] [place] [facility] [address] [facility] [id number], [place] [address] Oct, [facility] [address] [id number][place] [id number] Jul, [facility] [address] [facility] [id number], [place] [address] Jul, [facility] [address] [facility] [id number], [place] [address] Apr, [facility] [address] [id number], [place] [address] Apr, [facility] [address] [facility] [id number] [place] [address] Apr, [facility] [address] [id number], [place] [address] Apr, [facility] [address] [id number], [place] [address] Apr, [facility] [address] [id number], [place] [address] Dec, [facility] [address] [id number], [place] [address] Oct, [facility] [address] [id number], [place] [address] Sep, [facility] [address] [facility] [id number], [place] [address] Sep, [facility] [address] [facility] [id number], [place] [address] Aug, [facility] [place] [facility] [address] [facility] [id number], [place] [address] Aug, [facility] [address] [id number][place] [id number] Aug, [facility] [address] [id number], [place] [address] 15 Aug, 2012 [facility] [address] [facility] [id number], [place] [address] Aug, 2012 [facility] [address] [id number][place] [id number] Aug, [facility] [address] [facility] [id number], [place] [address] Aug, [facility] [id number] [place] [id number] Aug, [facility] [id number] [place] [address] Apr, [facility] [id number] [place] [address] Apr, [facility] [id number] [place] [address] Apr, [facility] [address] [id number], [place] [address] Apr, [facility] [id number] [place] [address] Apr, [facility] [address] [id number], [place] [id number] Apr, [facility] [address] [id number], [place] [address] Apr, [facility] [id number], [place] [id number] Feb, [facility] [id number], [place] [id number] Feb, [facility] [id number], [place] [address] Dec, [facility] [address] [id number], [place] [address] Dec, [facility] [address] [id number], [place] [address] Oct, [facility] [address]00565100[place], [place] [address] Sep, [facility] [address] [id number], [place] [address] Aug, [address]00565100[place] [id number] Aug, [id number] [id number] Jul, [address]00565100[place] [address] Jul, [facility] [address] [id number], [place] [address] Jul, [address]00565100[place], [place] [id number] Jul, IMMUNIZATIONS No Known Immunizations SOCIAL HISTORY Never Assessed REASON FOR VISIT [facility] PLAN OF CARE VITAL SIGNS MEDICATIONS Unknown [...]
--- OUTSIDE RECORDS SUMMARY | 2019-02-17 10:02 | XMS REPORT ---
Author Author Migration, Doctor Organization [facility] Address Unknown Phone Unavailable Care Team Providers Care Recreational Counselor Name Role Phone Migration, Doctor Unavailable Unavailable PROBLEMS Type Condition ICD9-CM Code [id number] Code Onset Dates Condition Status SNOMED Code Problem Screening examination for venereal disease V74.5 Active 860683556 Problem Screening for malignant neoplasm of the cervix V76.2 Active 023738691 Problem Other general counseling and advice for contraceptive management V25.09 Active 992608055 Problem Unspecified contraceptive management V25.9 Active 082692604 Problem Special screening examination, human papillomavirus [HPV] V73.81 Active 512752720 Problem General counseling for prescription of oral contraceptives V25.01 Active 607596317713325 Problem Problems related to high-risk sexual behavior V69.2 Active 896787852 Problem Need for prophylactic vaccination and inoculation, Influenza V04.81 Active 537855809 Problem Other specified symptom associated with female genital organs 625.8 Active 370259179 Problem Candidiasis of vulva and vagina 112.1 Active 57043844 Problem Routine gynecological examination V72.31 Active 823852775367164 Problem Unspecified genital herpes 054.10 Active 23118780 Problem examination or test, positive result V72.42 Active 791258632 Problem Leukorrhea, not specified as infective 623.5 Active 219214316 Problem Unspecified vaginitis and vulvovaginitis 616.10 Active 365000217 Problem Acute sinusitis, unspecified 461.9 Active 58032192 Problem Allergic rhinitis due to pollen 477.0 Active 33831374 ALLERGIES No Information ENCOUNTERS Encounter Location Date Diagnosis [facility] [address], [place] [address] Jun, [facility] [address], [place] [address] Jun, Strep pharyngitis J02.0 and Sore throat J02.9 [facility] [address], [place] [address] Mar, Acute nasopharyngitis J00 and Cough R05 [facility] [id number] [place] [address] 15 Feb, 2018 Encounter for immunization Z23 [facility] [id number] [place] [address] 14 Oct, 2014 [facility] [address] [address] Oct, [facility] [id number] [place] [address] Sep, [facility] [id number] [place] [address] Sep, [facility] [id number] [place] [address] Sep, [facility] [id number] [place] [address] Sep, [facility] [id number] [place] [address] Sep, [facility] [id number] [place] [address] Aug, [facility] [id number] [place] [address] Aug, [facility] [id number] [place] [address] Jul, [facility] [id number] [place] [address] Jul, [facility] [id number] [place] [address] Jun, [facility] [id number] [place] [address] Jun, [facility] [id number] [place] [address] May, [facility] [place] [facility] [address] [id number] [place] [address] May, [facility] [place] [facility] [address] [id number], [place] [address] Apr, [facility] [place] [facility] [address] [facility] [id number] [place] [address] Apr, [facility] [place] [facility] [address] [id number], [place] [address] Apr, [facility] [place] [facility] [address] [id number] [place] [address] Apr, [facility] [place] [facility] [address] [id number] [place] [address] Apr, [facility] [place] [facility] [address] [id number], [place] [address] Apr, [facility] [place] [facility] [address] [id number], [place] [address] Jan, [facility] [place] [facility] [address] [id number], [place] [address] Jan, [facility] [place] [facility] [address] [facility] [id number], [place] [address] Dec, [facility] [place] [facility] [address] [id number], [place] [address] Dec, [facility] [place] [facility] [address] [facility] [id number], [place] [address] Dec, [facility] [address] [facility] [place] [id number] [id number] Dec, [facility] [place] [facility] [address] [id number], [place] [address] Dec, [facility] [address] [facility] [place] [id number][place] [id number] Oct, [facility] [place] [facility] [address] [facility] [id number], [place] [address] Oct, [facility] [address] [id number] [id number] Jul, [facility] [address] [facility] [id number], [place] [address] Jul, [facility] [address] [facility] [id number], [place] [address] Apr, [facility] [address] [id number][place] [id number] Apr, [facility] [address] [facility] [id number] [place] [address] Apr, [facility] [id number], [place] [address] Apr, [facility] [address] [id number], [place] [address] Apr, [facility] [address] [id number][place] [id number] Dec, [facility] [address] [id number], [place] [address] Oct, [facility] [address] [id number], [place] [address] Sep, [facility] [address] [facility] [id number], [place] [address] Sep, [facility] [address] [facility] [id number], [place] [address] Aug, [facility] [place] [facility] [address] [facility] [id number], [place] [address] Aug, [facility] [address] [id number] [id number] Aug, [facility] [address] [id number], [place] [address] 15 Aug, 2012 [facility] [address] [facility] [id number], [place] [address] Aug, 2012 [facility] [address] [id number][place] [id number] Aug, [facility] [address] [facility] [id number], [place] [address] Aug, [facility] [id number] [place] [id number] Aug, [facility] [id number] [place] [address] Apr, [facility] [id number] [place] [address] Apr, [facility] [id number] [place] [address] Apr, [facility] [id number], [place] [address] Apr, [facility] [id number] [place] [address] Apr, [facility] [address] [id number][place] [id number] Apr, [facility] [id number], [place] [address] Apr, [facility] [id number], [place] [id number] Feb, [facility] [id number], [place] [address] Feb, [facility] [id number][place] [id number] Dec, [facility] [id number], [place] [address] Dec, [facility] [id number], [place] [address] Oct, [facility] [address], [place] [address] Sep, [facility] [id number], [place] [address] Aug, [address]65[address] [id number] Aug, [id number] [id number] Jul, [address]00565[place] [id number] Jul, [facility] [id number], [place] [address] Jul, [address]00565100[place] [id number] Jul, IMMUNIZATIONS No Known Immunizations SOCIAL HISTORY Never Assessed REASON FOR VISIT EMR-[facility] PLAN OF CARE VITAL SIGNS MEDICATIONS Unknown [...]
--- OUTSIDE RECORDS SUMMARY | 2019-02-17 10:03 | XMS REPORT ---
Author Author Migration, Doctor Organization [facility] Address Unknown Phone Unavailable Care Team Providers Care Transitions Rn Care Coordinator Name Role Phone Migration, Doctor Unavailable Unavailable PROBLEMS Type Condition ICD9-CM Code [id number] Code Onset Dates Condition Status SNOMED Code Problem Screening examination for venereal disease V74.5 Active 861318151 Problem Screening for malignant neoplasm of the cervix V76.2 Active 431384001 Problem Other general counseling and advice for contraceptive management V25.09 Active 903886152 Problem Unspecified contraceptive management V25.9 Active 308522559 Problem Special screening examination, human papillomavirus [HPV] V73.81 Active 999968770 Problem General counseling for prescription of oral contraceptives V25.01 Active 467543979654391 Problem Problems related to high-risk sexual behavior V69.2 Active 737196167 Problem Need for prophylactic vaccination and inoculation, Influenza V04.81 Active 675573801 Problem Other specified symptom associated with female genital organs 625.8 Active 063395974 Problem Candidiasis of vulva and vagina 112.1 Active 53244350 Problem Routine gynecological examination V72.31 Active 402427945578714 Problem Unspecified genital herpes 054.10 Active 36327879 Problem examination or test, positive result V72.42 Active 315000104 Problem Leukorrhea, not specified as infective 623.5 Active 677776352 Problem Unspecified vaginitis and vulvovaginitis 616.10 Active 765102477 Problem Acute sinusitis, unspecified 461.9 Active 03308229 Problem Allergic rhinitis due to pollen 477.0 Active 46794474 ALLERGIES No Information ENCOUNTERS Encounter Location Date Diagnosis [facility] [address], [place] [address] Jun, [facility] [address], [place] [address] Jun, Strep pharyngitis J02.0 and Sore throat J02.9 [facility] [address], [place] [address] Mar, Acute nasopharyngitis J00 and Cough R05 [facility] [id number] [place] [address] 15 Feb, 2018 Encounter for immunization Z23 [facility] [id number] [place] [address] 14 Oct, 2014 [facility] [address] [address] Oct, [facility] [id number] [place] [address] Sep, [facility] [id number] [place] [address] Sep, [facility] [id number] [place] [address] Sep, [facility] [id number] [place] [address] Sep, [facility] [id number] [place] [address] Sep, [facility] [id number] [place] [address] Aug, [facility] [id number] [place] [address] Aug, [facility] [id number] [place] [address] Jul, [facility] [address] [place] [address] Jul, [facility] [id number] [place] [address] Jun, [facility] [id number] [place] [address] Jun, [facility] [id number] [place] [address] May, [facility] [place] [facility] [address] [id number] [place] [address] May, [facility] [place] [facility] [address] [id number], [place] [address] Apr, [facility] [place] [facility] [address] [facility] [id number] [place] [address] Apr, [facility] [place] [facility] [address] [id number], [place] [address] Apr, [facility] [place] [facility] [address] [id number] [place] [address] Apr, [facility] [place] [facility] [address] [id number] [place] [address] Apr, [facility] [place] [facility] [address] [id number], [place] [address] Apr, [facility] [place] [facility] [address] [id number], [place] [address] Jan, [facility] [place] [facility] [address] [id number], [place] [address] Jan, [facility] [place] [facility] [address] [facility] [id number], [place] [address] Dec, [facility] [place] [facility] [address] [id number], [place] [address] Dec, [facility] [place] [facility] [address] [facility] [id number], [place] [address] Dec, [facility] [address] [facility] [id number], [place] [id number] Dec, [facility] [place] [facility] [address] [id number], [place] [address] Dec, [facility] [address] [facility] [id number], [place] [id number] Oct, [facility] [place] [facility] [address] [facility] [id number], [place] [address] Oct, [facility] [address] [id number] [id number] Jul, [facility] [address] [facility] [id number], [place] [address] Jul, [facility] [address] [facility] [id number], [place] [address] Apr, [facility] [address] [id number], [place] [id number] Apr, [facility] [address] [facility] [id number] [place] [address] Apr, [facility] [address] [id number], [place] [address] Apr, [facility] [address] [id number], [place] [address] Apr, [facility] [address] [id number], [place] [address] Dec, [facility] [address] [id number], [place] [address] Oct, [facility] [address] [id number], [place] [address] Sep, [facility] [address] [facility] [id number], [place] [address] Sep, [facility] [address] [facility] [id number], [place] [address] Aug, [facility] [place] [facility] [address] [facility] [id number], [place] [address] Aug, [facility] [address] [id number][place] [address] Aug, [facility] [address] [id number], [place] [address] 15 Aug, 2012 [facility] [address] [facility] [id number], [place] [address] Aug, 2012 [facility] [address] [id number][place] [id number] Aug, [facility] [address] [facility] [id number], [place] [address] Aug, [facility] [id number] [place] [id number] Aug, [facility] [id number] [place] [address] Apr, [facility] [id number] [place] [address] Apr, [facility] [id number] [place] [address] Apr, [facility] [address] [id number], [place] [address] Apr, [facility] [id number] [place] [address] Apr, [facility] [address] [id number], [place] [id number] Apr, [facility] [address] [id number], [place] [address] Apr, [facility] [id number], [place] [id number] Feb, [facility] [id number], [place] [id number] Feb, [facility] [id number], [place] [id number] Dec, [facility] [address] [id number], [place] [address] Dec, [facility] [address] [id number], [place] [address] Oct, [facility] [address]00565100[place], [place] [address] Sep, [facility] [address] [id number], [place] [address] Aug, [address]00565100[place], [place] [id number] Aug, [id number] [address] Jul, [address]00565100[place], [place] [id number] Jul, [facility] [address] [id number], [place] [address] Jul, [address]00565100[place], [place] [id number] Jul, IMMUNIZATIONS No Known Immunizations SOCIAL HISTORY Never Assessed REASON FOR VISIT [place] PLAN OF CARE VITAL SIGNS MEDICATIONS [...]
--- OUTSIDE RECORDS SUMMARY | 2019-02-17 10:03 | XMS REPORT ---
Author Author Migration, Doctor Organization [facility] Address Unknown Phone Unavailable Care Team Providers Care Basic Combatant Swimmer Name Role Phone Migration, Doctor Unavailable Unavailable PROBLEMS Type Condition ICD9-CM Code [id number] Code Onset Dates Condition Status SNOMED Code Problem Screening examination for venereal disease V74.5 Active 774628872 Problem Screening for malignant neoplasm of the cervix V76.2 Active 433880391 Problem Other general counseling and advice for contraceptive management V25.09 Active 978682763 Problem Unspecified contraceptive management V25.9 Active 143358019 Problem Special screening examination, human papillomavirus [HPV] V73.81 Active 456654059 Problem General counseling for prescription of oral contraceptives V25.01 Active 859830803416813 Problem Problems related to high-risk sexual behavior V69.2 Active 353784968 Problem Need for prophylactic vaccination and inoculation, Influenza V04.81 Active 787093062 Problem Other specified symptom associated with female genital organs 625.8 Active 402479578 Problem Candidiasis of vulva and vagina 112.1 Active 28328037 Problem Routine gynecological examination V72.31 Active 540459192765218 Problem Unspecified genital herpes 054.10 Active 20105165 Problem examination or test, positive result V72.42 Active 025690947 Problem Leukorrhea, not specified as infective 623.5 Active 210181562 Problem Unspecified vaginitis and vulvovaginitis 616.10 Active 801597197 Problem Acute sinusitis, unspecified 461.9 Active 55468128 Problem Allergic rhinitis due to pollen 477.0 Active 17833920 ALLERGIES No Information ENCOUNTERS Encounter Location Date Diagnosis [facility] [address] [address] Jun, [facility] [address], [place] [address] Jun, Strep pharyngitis J02.0 and Sore throat J02.9 [facility] [address], [place] [address] Mar, Acute nasopharyngitis J00 and Cough R05 [facility] [id number] [place] [address] 15 Feb, 2018 Encounter for immunization Z23 [facility] [id number] [place] [address] 14 Oct, 2014 [facility] [address] [address] Oct, [facility] [id number] [place] [address] Sep, [facility] [id number] [place] [address] Sep, [facility] [id number] [place] [address] Sep, [facility] [id number] [place] [address] Sep, [facility] [id number] [place] [address] Sep, [facility] [id number] [place] [address] Aug, [facility] [id number] [place] [address] Aug, [facility] [id number] [place] [address] Jul, [facility] [id number] [place] [address] Jul, [facility] [id number] [place] [address] Jun, [facility] [id number] [place] [address] Jun, [facility] [id number] [place] [address] May, [facility] [place] [facility] [address] [id number] [place] [address] May, [facility] [place] [facility] [address] [id number] [address] Apr, [facility] [place] [facility] [address] [facility] [id number] [place] [address] Apr, [facility] [place] [facility] [address] [id number], [place] [address] Apr, [facility] [place] [facility] [address] [id number] [place] [address] Apr, [facility] [place] [facility] [address] [id number] [place] [address] Apr, [facility] [place] [facility] [address] [id number], [place] [address] Apr, [facility] [place] [facility] [address] [id number] [address] Jan, [facility] [place] [facility] [address] [id number], [place] [address] Jan, [facility] [place] [facility] [address] [facility] [id number], [place] [address] Dec, [facility] [place] [facility] [address] [id number] [address] Dec, [facility] [place] [facility] [address] [facility] [id number], [place] [address] Dec, [facility] [address] [facility] [id number][place] [id number] Dec, [facility] [place] [facility] [address] [id number] [address] Dec, [facility] [address] [facility] [id number], [place] [id number] Oct, [facility] [place] [facility] [address] [facility] [id number], [place] [address] Oct, [facility] [address] [id number], [place] [id number] Jul, [facility] [address] [facility] [id number], [place] [address] Jul, [facility] [address] [facility] [id number], [place] [address] Apr, [facility] [address] [id number], [place] [id number] Apr, [facility] [address] [facility] [id number] [place] [address] Apr, [facility] [address] [id number], [place] [address] Apr, [facility] [address] [id number], [place] [address] Apr, [facility] [address] [id number], [place] [id number] Dec, [facility] [address] [id number], [place] [address] Oct, [facility] [address] [id number], [place] [address] Sep, [facility] [address] [facility] [id number], [place] [address] Sep, [facility] [address] [facility] [id number], [place] [address] Aug, [facility] [place] [facility] [address] [facility] [id number] [address] Aug, [facility] [address] [id number] [id number] Aug, [facility] [address] [id number], [place] [address] 15 Aug, 2012 [facility] [address] [facility] [id number], [place] [address] Aug, 2012 [facility] [address] [id number], [place] [id number] Aug, [facility] [address] [facility] [id number], [place] [address] Aug, [facility] [id number] [place] [id number] Aug, [facility] [id number] [place] [address] Apr, [facility] [id number] [place] [address] Apr, [facility] [id number] [place] [address] Apr, [facility] [address] [id number], [place] [address] Apr, [facility] [id number] [place] [address] Apr, [facility] [address] [id number], [place] [id number] Apr, [facility] [address] [id number], [place] [address] Apr, [facility] [id number], [place] [id number] Feb, [facility] [id number], [place] [id number] Feb, [facility] [id number], [place] [id number] Dec, [facility] [address] [id number], [place] [address] Dec, [facility] [address] [id number] [address] Oct, [facility] [address]00565100[place] [address] Sep, [facility] [address] [id number], [place] [address] Aug, [address]00565100[place] [id number] Aug, [id number] [id number] Jul, [address]00565100[place] [id number] Jul, [facility] [address] [id number], [place] [address] Jul, [address]00565100[place] [id number] Jul, IMMUNIZATIONS No Known Immunizations SOCIAL HISTORY Never Assessed REASON FOR VISIT EMR-[facility] PLAN OF CARE VITAL [...]
--- OUTSIDE RECORDS SUMMARY | 2019-02-17 10:03 | XMS REPORT ---
Author Author Migration, Doctor Organization [facility] Address Unknown Phone Unavailable Care Team Providers Care Insurance Adjuster Name Role Phone Migration, Doctor Unavailable Unavailable PROBLEMS Type Condition ICD9-CM Code [id number] Code Onset Dates Condition Status SNOMED Code Problem Screening examination for venereal disease V74.5 Active 438539964 Problem Screening for malignant neoplasm of the cervix V76.2 Active 271471143 Problem Other general counseling and advice for contraceptive management V25.09 Active 328584970 Problem Unspecified contraceptive management V25.9 Active 083091360 Problem Special screening examination, human papillomavirus [HPV] V73.81 Active 139886871 Problem General counseling for prescription of oral contraceptives V25.01 Active 792013902542290 Problem Problems related to high-risk sexual behavior V69.2 Active 785454652 Problem Need for prophylactic vaccination and inoculation, Influenza V04.81 Active 040454260 Problem Other specified symptom associated with female genital organs 625.8 Active 819154522 Problem Candidiasis of vulva and vagina 112.1 Active 30859432 Problem Routine gynecological examination V72.31 Active 472821629102882 Problem Unspecified genital herpes 054.10 Active 55716153 Problem examination or test, positive result V72.42 Active 361645182 Problem Leukorrhea, not specified as infective 623.5 Active 483976439 Problem Unspecified vaginitis and vulvovaginitis 616.10 Active 505121807 Problem Acute sinusitis, unspecified 461.9 Active 71844428 Problem Allergic rhinitis due to pollen 477.0 Active 82303063 ALLERGIES No Information ENCOUNTERS Encounter Location Date Diagnosis [facility] [address]00565100[place], [place] [address] Jun, [facility] [address]00565100[place], [place] [address] Jun, Strep pharyngitis J02.0 and Sore throat J02.9 [facility] [address]005[address], [place] [address] Mar, Acute nasopharyngitis J00 and Cough R05 [facility] [id number] [place] [address] 15 Feb, 2018 Encounter for immunization Z23 [facility] [id number] [place] [address] 14 Oct, 2014 [facility] [address] [address] Oct, [facility] [id number] [place] [address] Sep, [facility] [id number] [place] [address] Sep, [facility] [id number] [place] [address] Sep, [facility] [id number] [place] [address] Sep, [facility] [id number] [place] [address] Sep, [facility] [id number] [place] [address] Aug, [facility] [id number] [place] [address] Aug, [facility] [id number] [place] [address] Jul, [facility] [id number] [place] [address] Jul, [facility] [id number] [place] [address] Jun, [facility] [id number] [place] [address] Jun, [facility] [id number] [place] [address] May, [facility] [place] [facility] [address] [id number] [place] [address] May, [facility] [place] [facility] [address] [id number], [place] [address] Apr, [facility] [place] [facility] [address] [facility] [id number] [place] [address] Apr, [facility] [place] [facility] [address] [id number], [place] [address] Apr, [facility] [place] [facility] [address] [id number] [place] [address] Apr, [facility] [place] [facility] [address] [id number] [place] [address] Apr, [facility] [place] [facility] [address] [id number], [place] [address] Apr, [facility] [place] [facility] [address] [id number], [place] [address] Jan, [facility] [place] [facility] [address] [id number], [place] [address] Jan, [facility] [place] [facility] [address] [facility] [id number], [place] [address] Dec, [facility] [place] [facility] [address] [id number], [place] [address] Dec, [facility] [place] [facility] [address] [facility] [id number], [place] [address] Dec, [facility] [address] [facility] [id number][place] [id number] Dec, [facility] [place] [facility] [address] [id number], [place] [address] Dec, [facility] [address] [facility] [id number], [place] [address] Oct, [facility] [place] [facility] [address] [facility] [id number], [place] [address] Oct, [facility] [address] [id number] [id number] Jul, [facility] [address] [facility] [id number], [place] [address] Jul, [facility] [address] [facility] [id number], [place] [address] Apr, [facility] [address] [id number], [place] [id number] Apr, [facility] [address] [facility] [id number] [place] [address] Apr, [facility] [address] [id number], [place] [address] Apr, [facility] [address] [id number], [place] [address] Apr, [facility] [address] [id number], [place] [address] Dec, [facility] [address] [id number], [place] [address] Oct, [facility] [address] [id number], [place] [address] Sep, [facility] [address] [facility] [id number], [place] [address] Sep, [facility] [address] [facility] [id number], [place] [address] Aug, [facility] [place] [facility] [address] [facility] [id number], [place] [address] Aug, [facility] [address] [id number], [place] [address] Aug, [facility] [address] [id number], [place] [address] 15 Aug, 2012 [facility] [address] [facility] [id number], [place] [address] Aug, 2012 [facility] [address] [id number], [place] [address] Aug, [facility] [address] [facility] [id number], [place] [address] Aug, [facility] [id number] [place] [id number] Aug, [facility] [id number] [place] [address] Apr, [facility] [id number] [place] [address] Apr, [facility] [id number] [place] [address] Apr, [facility] [address] [id number], [place] [address] Apr, [facility] [id number] [place] [address] Apr, [facility] [address] [id number], [place] [address] Apr, [facility] [address] [id number], [place] [address] Apr, [facility] [id number], [place] [address] Feb, [facility] [id number], [place] [id number] Feb, [facility] [id number], [place] [address] Dec, [facility] [address] [id number], [place] [address] Dec, [facility] [address] [id number], [place] [address] Oct, [facility] [address]00565100[place], [place] [address] Sep, [facility] [address] [id number], [place] [address] Aug, [address]00565100[place], [place] [id number] Aug, [id number] [id number] Jul, [address]00565100[place] [id number] Jul, [facility] [address] [id number], [place] [address] Jul, [address]00565100[place] [address] Jul, IMMUNIZATIONS No Known Immunizations SOCIAL HISTORY Never Assessed REASON FOR VISIT EMR-[facility] PLAN OF CARE VITAL SIGNS MEDICATIONS Unknown [...]
--- OUTSIDE RECORDS SUMMARY | 2019-02-17 10:03 | XMS REPORT ---
Author Author Migration, Doctor Organization [facility] Address Unknown Phone Unavailable Care Team Providers Care Medical Dermatologist Name Role Phone Migration, Doctor Unavailable Unavailable PROBLEMS Type Condition ICD9-CM Code FCE04-QJ Code Onset Dates Condition Status SNOMED Code Problem Screening examination for venereal disease V74.5 Active 454415028 Problem Screening for malignant neoplasm of the cervix V76.2 Active 817477252 Problem Other general counseling and advice for contraceptive management V25.09 Active 098049221 Problem Unspecified contraceptive management V25.9 Active 713843887 Problem Special screening examination, human papillomavirus [HPV] V73.81 Active 511040988 Problem General counseling for prescription of oral contraceptives V25.01 Active 357409729374535 Problem Problems related to high-risk sexual behavior V69.2 Active 140695831 Problem Need for prophylactic vaccination and inoculation, Influenza V04.81 Active 188925934 Problem Other specified symptom associated with female genital organs 625.8 Active 493998591 Problem Candidiasis of vulva and vagina 112.1 Active 92583470 Problem Routine gynecological examination V72.31 Active 549591136731479 Problem Unspecified genital herpes 054.10 Active 41690181 Problem examination or test, positive result V72.42 Active 340266710 Problem Leukorrhea, not specified as infective 623.5 Active 104089444 Problem Unspecified vaginitis and vulvovaginitis 616.10 Active 174295812 Problem Acute sinusitis, unspecified 461.9 Active 59139703 Problem Allergic rhinitis due to pollen 477.0 Active 68287017 ALLERGIES No Information ENCOUNTERS Encounter Location Date Diagnosis [facility] [address] [address] Jun, [facility] [address] [address] Jun, Strep pharyngitis J02.0 and Sore throat J02.9 [facility] [address] [address] Mar, Acute nasopharyngitis J00 and Cough R05 [facility] [id number] [place] [address] 15 Feb, 2018 Encounter for immunization Z23 [facility] [id number] [place] [address] 14 Oct, 2014 [facility] [address] [address] Oct, [facility] [id number] [place] [address] Sep, [facility] [id number] [place] [address] Sep, [facility] [id number] [place] [address] Sep, [facility] [id number] [place] [address] Sep, [facility] [id number] [place] [address] Sep, [facility] [id number] [place] [address] Aug, [facility] [address] [place] [address] Aug, [facility] [id number] [place] [address] Jul, [facility] [address] [place] [address] Jul, [facility] [id number] [place] [address] Jun, [facility] [id number] [place] [address] Jun, [facility] [id number] [place] [address] May, [facility] [place] [facility] [address] [id number] [place] [address] May, [facility] [place] [facility] [address] [id number] [address] Apr, [facility] [place] [facility] [address] [facility] [id number] [place] [address] Apr, [facility] [place] [facility] [address] [id number] [address] Apr, [facility] [place] [facility] [address] [id number] [place] [address] Apr, [facility] [place] [facility] [address] [id number] [place] [address] Apr, [facility] [place] [facility] [address] [id number][place] [address] Apr, [facility] [place] [facility] [address] [id number], [place] [address] Jan, [facility] [place] [facility] [address] [id number][place] [address] Jan, [facility] [place] [facility] [address] [facility] [place] [id number] [address] Dec, [facility] [place] [facility] [address] [id number][place] [address] Dec, [facility] [place] [facility] [address] [facility] [id number][place] [address] Dec, [facility] [address] [facility] [id number][place] [id number] Dec, [facility] [place] [facility] [address] [id number][place] [address] Dec, [facility] [address] [facility] [id number][place] [id number] Oct, [facility] [place] [facility] [address] [facility] [id number] [address] Oct, [facility] [address] [id number][place] [id number] Jul, [facility] [address] [facility] [id number] [address] Jul, [facility] [address] [facility] [id number] [address] Apr, [facility] [address] [id number][place] [id number] Apr, [facility] [address] [facility] [id number] [place] [address] Apr, [facility] [address] [id number] [address] Apr, [facility] [address] [id number] [address] Apr, [facility] [address] [id number][place] [id number] Dec, [facility] [address] [id number] [address] Oct, [facility] [address] [id number] [address] Sep, [facility] [address] [facility] [id number] [address] Sep, [facility] [address] [facility] [id number][place] [address] Aug, [facility] [place] [facility] [address] [facility] [id number] [address] Aug, [facility] [address] [id number][place] [id number] Aug, [facility] [address] [id number] [address] 15 Aug, 2012 [facility] [address] [facility] [id number][place] [address] Aug, 2012 [facility] [address] [id number][place] [id number] Aug, [facility] [address] [facility] [id number][place] [address] Aug, [facility] [id number] [place] [id number] Aug, [facility] [id number] [place] [address] Apr, [facility] [id number] [place] [address] Apr, [facility] [id number] [place] [address] Apr, [facility] [address] [id number] [address] Apr, [facility] [id number] [place] [address] Apr, [facility] [address] [id number], [place] [id number] Apr, [facility] [address] [id number] [address] Apr, [facility] [id number][place] [id number] Feb, [facility] [id number], [place] [id number] Feb, [facility] [id number], [place] [id number] Dec, [facility] [address] [id number] [address] Dec, [facility] [address] [id number] [address] Oct, [facility] [address]100[place] [address] Sep, [facility] [address] [id number] [address] Aug, [address]00565100[place] [id number] Aug, [id number] [id number] Jul, [address]00565100[place] [address] Jul, [facility] [address] [id number] [address] Jul, [address]00565100[place] [address] Jul, IMMUNIZATIONS No Known Immunizations SOCIAL HISTORY Never Assessed REASON FOR VISIT EMR-[facility] PLAN OF CARE VITAL SIGNS [...]
--- OUTSIDE RECORDS SUMMARY | 2019-02-17 10:03 | XMS REPORT ---
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 Name Role Phone Migration, Doctor Unavailable Unavailable PROBLEMS Type Condition ICD9-CM Code JBZ83-BI Code Onset Dates Condition Status SNOMED Code Problem Screening examination for venereal disease V74.5 Active 890208578 Problem Screening for malignant neoplasm of the cervix V76.2 Active 322409803 Problem Other general counseling and advice for contraceptive management V25.09 Active 091628513 Problem Unspecified contraceptive management V25.9 Active 165552861 Problem Special screening examination, human papillomavirus [HPV] V73.81 Active 224333573 Problem General counseling for prescription of oral contraceptives V25.01 Active 020794326831891 Problem Problems related to high-risk sexual behavior V69.2 Active 018816739 Problem Need for prophylactic vaccination and inoculation, Influenza V04.81 Active 100694900 Problem Other specified symptom associated with female genital organs 625.8 Active 819097735 Problem Candidiasis of vulva and vagina 112.1 Active 96517124 Problem Routine gynecological examination V72.31 Active 187212627654625 Problem Unspecified genital herpes 054.10 Active 62161061 Problem examination or test, positive result V72.42 Active 013295631 Problem Leukorrhea, not specified as infective 623.5 Active 669928313 Problem Unspecified vaginitis and vulvovaginitis 616.10 Active 065801500 Problem Acute sinusitis, unspecified 461.9 Active 86120125 Problem Allergic rhinitis due to pollen 477.0 Active 57386816 ALLERGIES No Information ENCOUNTERS Encounter Location Date Diagnosis [facility] [address], [place] [address] Jun, [facility] [address], [place] [address] Jun, Strep pharyngitis J02.0 and Sore throat J02.9 [facility] [address], [place] [address] Mar, Acute nasopharyngitis J00 and Cough R05 [facility] [id number] [place] [address] 15 Feb, 2018 Encounter for immunization Z23 [facility] [id number] [place] [address] 14 Oct, 2014 [facility] [address] [address] Oct, [facility] [id number] [place] [address] Sep, [facility] [id number] [place] [address] Sep, [facility] [id number] [place] [address] Sep, [facility] [id number] [place] [address] Sep, [facility] [id number] [place] [address] Sep, [facility] [id number] [place] [address] Aug, [facility] [address] [place] [address] Aug, [facility] [id number] [place] [address] Jul, [facility] [address] [place] [address] Jul, [facility] [id number] [place] [address] Jun, [facility] [id number] [place] [address] Jun, [facility] [id number] [place] [address] May, [facility] [place] [facility] [address] [id number] [place] [address] May, [facility] [place] [facility] [address] [id number] [address] Apr, [facility] [place] [facility] [address] [facility] [id number] [place] [address] Apr, [facility] [place] [facility] [address] [id number], [place] [address] Apr, [facility] [place] [facility] [address] [id number] [place] [address] Apr, [facility] [place] [facility] [address] [id number] [place] [address] Apr, [facility] [place] [facility] [address] [id number], [place] [address] Apr, [facility] [place] [facility] [address] [id number], [place] [address] Jan, [facility] [place] [facility] [address] [id number][place] [address] Jan, [facility] [place] [facility] [address] [facility] [id number][place] [address] Dec, [facility] [place] [facility] [address] [id number], [place] [address] Dec, [facility] [place] [facility] [address] [facility] [id number], [place] [address] Dec, [facility] [address] [facility] [id number] [place] [id number] Dec, [facility] [place] [facility] [address] [id number], [place] [address] Dec, [facility] [address] [facility] [id number] [place] [id number] Oct, [facility] [place] [facility] [address] [facility] [id number], [place] [address] Oct, [facility] [address] [id number] [place] [id number] Jul, [facility] [address] [facility] [id number], [place] [address] Jul, [facility] [address] [facility] [id number], [place] [address] Apr, [facility] [address] [id number] [place] [id number] Apr, [facility] [address] [facility] [id number] [place] [address] Apr, [facility] [address] [id number], [place] [address] Apr, [facility] [address] [id number], [place] [address] Apr, [facility] [address] [id number] [place] [address] Dec, [facility] [address] [id number], [place] [address] Oct, [facility] [address] [id number], [place] [address] Sep, [facility] [address] [facility] [id number], [place] [address] Sep, [facility] [address] [facility] [id number], [place] [address] Aug, [facility] [place] [facility] [address] [facility] [id number], [place] [address] Aug, [facility] [address] [id number] [place] [id number] Aug, [facility] [address] [id number] [address] 15 Aug, 2012 [facility] [address] [facility] [id number] [address] Aug, 2012 [facility] [address] [id number] [place] [id number] Aug, [facility] [address] [facility] [id number], [place] [address] Aug, [facility] [id number] [place] [id number] Aug, [facility] [id number] [place] [address] Apr, [facility] [id number] [place] [address] Apr, [facility] [id number] [place] [address] Apr, [facility] [address] [id number], [place] [address] Apr, [facility] [id number] [place] [address] Apr, [facility] [address] [id number] [place] [address] Apr, [facility] [address] [id number], [place] [address] Apr, [facility] [id number] [place] [address] Feb, [facility] [id number] [place] [id number] Feb, [facility] [id number] [place] [address] Dec, [facility] [address] [id number], [place] [address] Dec, [facility] [address] [id number], [place] [address] Oct, [facility] [address]005[address]100[place], [place] [address] Sep, [facility] [address] [id number], [place] [address] Aug, [address]00565100[place] [id number] Aug, [address] [id number] [id number] Jul, [address]00565100[place] [id number] Jul, [facility] [address] [id number], [place] [address] Jul, [address]00565100[place] [id number] Jul, IMMUNIZATIONS No Known Immunizations SOCIAL HISTORY Never Assessed REASON FOR VISIT EMR-[facility] PLAN OF [...]
--- OUTSIDE RECORDS SUMMARY | 2019-02-17 10:04 | XMS REPORT ---
Author Author SHARLENE CARDOZA [facility] Address [address] [place] [address] Care Team Providers Care Pearl Diver Name Role Phone SHARLENE CARDOZA Unavailable PROBLEMS Type Condition ICD9-CM Code UAJ68-IV Code Onset Dates Condition Status SNOMED Code Problem Problems related to high-risk sexual behavior V69.2 Active 953824815 Problem Other specified symptom associated with female genital organs 625.8 Active 737572532 Problem Need for prophylactic vaccination and inoculation, Influenza V04.81 Active 682064551 Problem Unspecified genital herpes 054.10 Active 97969793 Problem Candidiasis of vulva and vagina 112.1 Active 82473595 Problem Unspecified vaginitis and vulvovaginitis 616.10 Active 945004023 Problem Leukorrhea, not specified as infective 623.5 Active 605793823 Problem Allergic rhinitis due to pollen 477.0 Active 06954730 Problem Acute sinusitis, unspecified 461.9 Active 84969616 Problem Screening for malignant neoplasm of the cervix V76.2 Active 265516079 Problem Screening examination for venereal disease V74.5 Active 063798042 Problem General counseling for prescription of oral contraceptives V25.01 Active 592355548905691 Problem Special screening examination, human papillomavirus [HPV] V73.81 Active 135310825 Problem Unspecified contraceptive management V25.9 Active 672701965 Problem examination or test, positive result V72.42 Active 170860612 Problem Other general counseling and advice for contraceptive management V25.09 Active 796078423 Problem Routine gynecological examination V72.31 Active [id number] ALLERGIES No Information ENCOUNTERS Encounter Location Date Diagnosis [facility] [address] [facility] [id number], [place] [address] Jun, [facility] [address] [id number], [place] [address] Jun, Strep pharyngitis J02.0 and Sore throat J02.9 [facility] [address], [place] [address] 10 Mar, 2018 Acute nasopharyngitis J00 and Cough R05 [facility] [address] [id number], [place] [address] 15 Feb, 2018 Encounter for immunization Z23 [facility] [address] [address] Oct, [facility] [id number] [place] [address] Oct, [facility] [id number] [place] [address] Sep, [facility] [id number] [place] [address] Sep, [facility] [id number] [place] [address] Sep, [facility] [id number] [place] [address] Sep, [facility] [id number] [place] [address] Sep, [facility] [id number] [place] [address] Aug, [facility] [id number] [place] [address] Aug, [facility] [id number] [place] [address] Jul, [facility] [id number] [place] [address] Jul, [facility] [address], [place] [address] Jun, [facility] [id number] [place] [address] Jun, [facility] [place] [facility] [address] [id number] [place] [address] May, [facility] [place] [facility] [address] [id number] [place] [address] May, [facility] [place] [facility] [address] [facility] [id number] [place] [address] Apr, [facility] [place] [facility] [address] [id number] [place] [address] Apr, [facility] [place] [facility] [address] [id number] [place] [address] Apr, [facility] [place] [facility] [address] [id number] [place] [address] Apr, [facility] [place] [facility] [address] [facility] [id number] [place] [address] Apr, [facility] [place] [facility] [address] [id number] [place] [address] Apr, [facility] [place] [facility] [address] [facility] [id number] [place] [address] Jan, [facility] [place] [facility] [address] [facility] [id number] [place] [address] Jan, [facility] [place] [facility] [address] [facility] [id number], [place] [address] Dec, [facility] [place] [facility] [address] [facility] [id number], [place] [address] Dec, [facility] [place] [facility] [address] [facility] [id number], [place] [address] Dec, [facility] [address] [facility] [id number] [id number] Dec, [facility] [place] [facility] [address] [facility] [id number], [place] [address] Dec, [facility] [id number][place] [id number] Oct, [facility] [address] [facility] [id number], [place] [address] Oct, [facility] [address] [id number] [id number] Jul, [facility] [address] [facility] [id number] [place] [address] Jul, [facility] [address] [facility] [id number], [place] [address] Apr, [facility] [id number] [place] [id number] Apr, [facility] [address] [id number], [place] [address] Apr, [facility] [place] [facility] [address] [id number], [place] [address] Apr, [facility] [address] [id number], [place] [address] Apr, [address] [id number] Dec, [facility] [place] [facility] [address] [id number], [place] [address] Oct, [facility] [place] [facility] [id number], [place] [address] Sep, [facility] [place] [facility] [address] [facility] [id number], [place] [address] Sep, [facility] [place] [facility] [address] [id number], [place] [address] Aug, [facility] [place] [facility] [id number], [place] [address] Aug, [facility] [id number][place] [id number] Aug, [facility] [address] [facility] [id number], [place] [address] Aug, [facility] [address] [id number], [place] [address] Aug, 2012 [facility] [id number], [place] [id number] Aug, [facility] [address] [facility] [id number], [place] [address] Aug, [facility] [id number] [place] [id number] Aug, [facility] [address] [id number], [place] [address] Apr, [facility] [id number] [place] [address] Apr, [facility] [address] [id number], [place] [address] Apr, [facility] [id number] [place] [address] Apr, [facility] [address] [id number], [place] [address] Apr, [facility] [id number], [place] [id number] Apr, [facility] [address] [facility] [id number], [place] [address] Apr, [facility] [id number], [place] [id number] Feb, [facility] [id number], [place] [id number] Feb, [facility] [id number], [place] [id number] Dec, [facility] [id number], [place] [address] Dec, [facility] [address], [place] [address] Oct, [facility] [address], [place] [address] Sep, [facility] [address], [place] [address] Aug, [facility] [id number], [place] [id number] Aug, [address] [id number] Jul, [address] [id number] Jul, [facility] [address], [place] [address] Jul, [facility] [id number] [id number] Jul, IMMUNIZATIONS No Known Immunizations SOCIAL HISTORY [...]
--- OUTSIDE RECORDS SUMMARY | 2019-02-17 10:04 | XMS REPORT | Continuity of Care Document ---
Author Author [facility] Organization [facility] Address 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 Role Phone JEREMY SALGADO MD PCP Advance Directives Directive Response Recorded Date/Time Advance Directives No 10/16/15 2:34am Advance Directive on File No 10/16/15 2:37am Durable POA for HC No 10/16/15 2:37am Power of Career Transition Specialist No 10/16/15 2:37am Organ Donor No 10/16/15 2:37am Living Will No 10/16/15 2:37am Chief Complaint and Reason for Visit Chief Complaint General Complaint Reason for Visit Anxiety disorder Gastroenteritis Electrolyte and fluid disorder Problems Active Problems Medical Problem Onset Date Status Anxiety disorder Unknown Acute Anxiety disorder Unknown Acute Electrolyte and fluid disorder Unknown Acute Electrolyte and fluid disorder Unknown Acute Gastroenteritis Unknown Acute Gastroenteritis Unknown Acute Medications Current Home Medications Medication Dose Units Route Directions Days/Qty Instructions Start Date Ondansetron (Zofran Odt) 4 Mg 4 Mg Oral Every Six Hours for Nausea/Vomiting 10/16/15 Potassium Chloride (Kcl 20 Meq Tablet) 20 Meq 20 Meq Oral Twice A Day 20 10/16/15 Promethazine Hcl (Phenergan 25 Mg Tablet) 25 Mg 25 Mg Oral Every 6 To 8 Hours As Needed as needed for Nausea / Vomiting 14 10/16/15 Social History Social History Problem Response Recorded Date/Time Smoking Status Never smoker 10/16/2015 2:47am Smoked in the last 12 months? No 10/16/2015 2:47am Do you dip or chew tobacco? No 10/16/2015 2:47am Approx how many cigs per day? 0 10/16/2015 2:47am Level of Dependence Low 10/16/2015 2:47am Former smoker, last day smoked? NA 10/16/2015 2:47am Query Response Start Date Stop Date Smoking Status Never smoker Hospital Discharge Instructions No hospital discharge instructions. Plan of Care Discharge Date 10/16/15 5:55am Disposition 01 D/C HOME Condition at Discharge Stable Instructions/Education Provided Acute Nausea and Vomiting (ED) Forms Provided ER Discharge Phone Call Check Prescriptions See Medication Section Referrals JEREMY SALGADO MD - Additional Instructions/Education Take only clear liquids in small amounts at frequent intervals. Sport drinks (like Gatorade) are best. Start with 1 Tablespoon every 15-20 minutes, and if that stays down well 2 or 3 times, increase the amount to 2 Tablespoons, and increase as possible. If you can keep 4 or 5 Tablespoons down well, try some solid foods. This is contagious, so do not let anyone eat or drink after you, and do not handle other peoples food or clean dishes. This usually takes 3 to 5 days to get over. Promethazine (Phenergan) helps nausea but also is slightly sedating and should help your anxiousness. Take the potassium pills until you have your level checked again - in 4-6 days. Reference Links Reference Text What is viral gastroenteritis? Viral gastroenteritis is an infection that can cause diarrhea and vomiting. It happens when a person s stomach and intestines get infected with a virus (figure 1). Both adults and children can get viral gastroenteritis. People can get the infection if they: ?Touch an infected person or a surface with the virus on it, and then don t wash their hands ?Eat foods or drink liquids with the virus in them. If people with the virus don t wash their hands, they can spread it to food or liquids they touch. What are the symptoms of viral gastroenteritis? The infection causes diarrhea and vomiting. People can have either diarrhea or vomiting, or both. These symptoms usually start suddenly, and can be severe. Viral gastroenteritis can also cause: ?A fever ?A headache or muscle aches ?Belly pain or cramping ?A loss of appetite If you have diarrhea and vomiting, your body can lose too much water. Doctors call this dehydration. Dehydration can make you have dark yellow urine and feel thirsty, tired, dizzy, or confused. Severe dehydration can be life-threatening. Babies, young children, and elderly people are more likely to get severe dehydration. Do people with viral gastroenteritis need tests? Not usually. Their doctor or nurse should be able to tell if they have it by learning about their symptoms and doing an exam. But the doctor or nurse might do tests to check for dehydration or to see which virus is causing the infection. These tests can include: ?Blood tests ?Urine tests ?Tests on a sample of bowel movement Is there anything I can do on my own to feel better or help my child? Yes. People with viral gastroenteritis need to drink enough fluids so they don t get dehydrated. Some fluids help prevent dehydration better than others: ?Older children and adults can drink sports drinks. ?You can give babies and young children an oral rehydration solution, such as Pedialyte. You can buy this in a store or pharmacy. If your child is vomiting, you can try to give your child a few teaspoons of fluid every few minutes. ?Babies who breastfeed can continue to breastfeed. People with viral gastroenteritis should avoid drinking juice or soda. These can make diarrhea worse. If you can keep food down, it s best to eat lean meats, fruits, vegetables, and whole-grain breads and cereals. Avoid eating foods with a lot of fat or sugar, which can make symptoms worse. If you are an adult younger than 65 and you have a new bout of diarrhea but no fever or blood in your bowel movements, you can take medicine to stop diarrhea such as loperamide (brand name: Imodium) for 1 to 2 days. If you are older than 65, have a fever, or have blood in your bowel movements, do not take these medicines without checking with your doctor. Do NOT give medicines to stop diarrhea to children. Should I call the doctor or nurse? Call the doctor or nurse if you or your child: ?Has any symptoms of dehydration ?Has diarrhea or vomiting that lasts longer than a few days ?Vomits up blood, has bloody diarrhea, or has severe belly pain ?Hasn t had anything to drink in a few hours (for children), or in many hours (for adults) ?Hasn t needed to urinate in the past 6 to 8 hours (during the day), or if your baby or young child hasn t had a wet diaper for 4 to 6 hours How is viral gastroenteritis treated? Most people do not need any treatment, because their symptoms will get better on their own. But people with severe dehydration might need treatment in the hospital for their dehydration. This involves getting fluids through an IV (a thin tube that goes into the vein). Doctors do not treat viral gastroenteritis with antibiotics. That s because antibiotics treat infections that are caused by bacteria not viruses. Can viral gastroenteritis be prevented? Sometimes. To lower the chance of getting or spreading the infection, you can: ?Wash your hands with soap and water after you use the bathroom or change your child s diaper, and before you eat. ?Avoid changing your child s diaper near where you prepare food. ?Make sure your baby gets the rotavirus vaccine. Vaccines are treatments that can prevent serious infections. Rotavirus is a virus that commonly causes viral gastroenteritis in children. Functional Status Query Response Date Recorded Activities of Daily Living Performs w/o Assistance October 16, 2015 2:47am Cognitive Function Intact October 16, 2015 2:47am Allergies, Adverse Reactions, Alerts Allergen Type Severity Reaction Status Last Updated Codeine Allergy Unknown Rash Active 10/16/15 Immunizations No immunization records. Vital Signs Acute Vital Signs Vital Response Date/Time Temperature (Fahrenheit) 99 degrees F (97.6 - 99.5) 10/16/2015 5:45am Temperature (Calculated Celsius) 37.2252 degrees C (36.4 - 37.5) 10/16/2015 5:45am Temperature Source Temporal Artery Scan 10/16/2015 5:45am Pulse Pulse Ox Pulse Rate (adult) 78 beats per minute (60 - 90) 10/16/2015 5:45am Oxygen Saturation Respiratory Rate 16 breaths per minute (12 - 24) 10/16/2015 5:45am O2 Sat by Pulse Oximetry 99 % (90 - 100) 10/16/2015 5:45am Blood Pressure 129/74 mm Hg 10/16/2015 5:45am Blood Pressure Mean 92 mm Hg 10/16/2015 5:45am Height 5 ft 4 in Weight 130 lb Body Mass Index 22.3 kg/m^2 Results Laboratory Results Test Name Result Units Flags Reference Collection Date/Time Result Date/Time Comments White Blood Count 16.0 x10^3/uL *H 4.0-11.0 10/16/2015 2:59am 10/16/2015 3:31am Red Blood Count 4.02 10^6/uL 3.80-5.80 10/16/2015 2:59am 10/16/2015 3:31am Hematocrit 36.0 % L 37.0-47.0 10/16/2015 2:59am 10/16/2015 3:31am Mean Corpuscular Volume 90 fl 76-96 10/16/2015 2:59am 10/16/2015 3:31am Mean Corpuscular Hemoglobin 30.3 pg 27.0-32.0 10/16/2015 2:59am 10/16/2015 3:31am Mean Corpuscular Hemoglobin Concent 33.9 g/dl 31.0-35.0 10/16/2015 2:59am 10/16/2015 3:31am Red Cell Distribution Width 11.7 % 11.0-16.0 10/16/2015 2:59am 10/16/2015 3:31am Platelet Count 281 10^3/uL 150-500 10/16/2015 2:59am 10/16/2015 3:31am Mean Platelet Volume 8.9 fl 6.0-10.0 10/16/2015 2:59am 10/16/2015 3:31am Neutrophils (%) (Auto) 94.5 % *H 45.0-70.0 10/16/2015 2:59am 10/16/2015 3:31am Lymphocytes (%) (Auto) 2.0 % *L 20.0-40.0 10/16/2015 2:am 10/16/2015 3:31am Monocytes (%) (Auto) 3.4 % 3.0-10.0 10/16/2015 2:am 10/16/2015 3:31am Eosinophils (%) (Auto) 0.0 % L 1.0-5.0 10/16/2015 2:59am 10/16/2015 3:31am Basophils (%) (Auto) 0.1 % 0.0-0.5 10/16/2015 2:59am 10/16/2015 3:31am Neutrophils # (Auto) 15.11 x10^3/uL *H 2.00-7.50 10/16/2015 2:am 10/16/2015 3:31am Lymphocytes # (Auto) 0.32 x10^3/uL L 1.50-4.00 10/16/2015 2:59am 10/16/2015 3:31am Monocytes # (Auto) 0.55 x10^3/uL 0.20-0.80 10/16/2015 2:59am 10/16/2015 3:31am Eosinophils # (Auto) 0.00 x10^3/uL L 0.04-0.40 10/16/2015 2:59am 10/16/2015 3:31am Basophils # (Auto) 0.01 x10^3/uL L 0.02-0.10 10/16/2015 2:59am 10/16/2015 3:31am Volume Urine Centrifuged 12 ml 10/16/2015 3:09am 10/16/2015 3:31am Test based ON 12 ml volume. Urine Color STRAW STRAW 10/16/2015 3:09am 10/16/2015 3:31am Urine Clarity CLEAR CLEAR 10/16/2015 3:09am 10/16/2015 3:31am Urine Specific [place] 1.005 A 1.010-1.020 10/16/2015 3:09am 10/16/2015 3:31am Urine pH 7.0 A 5.0-6.0 10/16/2015 3:09am 10/16/2015 3:31am Urine Leukocyte Esterase NEGATIVE NEGATIVE 10/16/2015 3:09am 10/16/2015 3:31am Urine Nitrite NEGATIVE NEGATIVE 10/16/2015 3:09am 10/16/2015 3:31am Urine Protein NEGATIVE NEGATIVE 10/16/2015 3:09am 10/16/2015 3:31am Urine Glucose (UA) NEGATIVE NEGATIVE 10/16/2015 3:09am 10/16/2015 3:31am Urine Ketones 2+ A NEGATIVE 10/16/2015 3:09am 10/16/2015 3:31am Urine Urobilinogen 0.2 0.2-1.0 10/16/2015 3:09am 10/16/2015 3:31am Urine Bilirubin NEGATIVE NEGATIVE 10/16/2015 3:09am 10/16/2015 3:31am Urine Occult Blood NEGATIVE NEGATIVE 10/16/2015 3:09am 10/16/2015 3:31am Urine WBC NONE #/HPF OCCASIONAL 10/16/2015 3:09am 10/16/2015 3:31am Urine RBC NONE #/HPF OCCASIONAL 10/16/2015 3:09am 10/16/2015 3:31am Urine Epithelial Cells NONE #/HPF OCCASIONAL 10/16/2015 3:09am 10/16/2015 3:31am Urine Other Casts NONE #/LPF NEGATIVE 10/16/2015 3:09am 10/16/2015 3:31am Urine Bacteria NONE NONE 10/16/2015 3:09am 10/16/2015 3:31am Urine Other Crystals NONE NONE 10/16/2015 3:09am 10/16/2015 3:31am Urine Mucus NONE NONE 10/16/2015 3:09am 10/16/2015 3:31am Urine Culture Indicated NO NO 10/16/2015 3:09am 10/16/2015 3:31am Sodium Level 142 mmol/L 137-145 10/16/2015 2:59am 10/16/2015 3:42am Potassium Level 3.0 mmol/L L 3.5-5.1 10/16/2015 2:59am 10/16/2015 3:42am Carbon Dioxide Level 22.7 mmol/L 22-30 10/16/2015 2:59am 10/16/2015 3:42am Anion Gap 16.3 mEq/L H 8-16 10/16/2015 2:59am 10/16/2015 3:42am Blood Urea Nitrogen 17 mg/dL 7-17 10/16/2015 2:59am 10/16/2015 3:42am Creatinine 1.02 mg/dl 0.52-1.04 10/16/2015 2:59am 10/16/2015 3:42am Est Glomerular Filtrat Rate mL/min 65.01 10/16/2015 2:59am 10/16/2015 3:41am GFR NORMALS: Stage I: GFR >90 Stage II GFR 60-89 Stage III GFR 30-60 Stage IV: GFR 15-29 Stage V: GFR <15 BUN/Creatinine Ratio 16.66 10/16/2015 2:59am 10/16/2015 3:42am Glucose Level 123 mg/dL H 74-106 10/16/2015 2:59am 10/16/2015 3:42am Calculated Osmolality 296.0 mosm/kg 273-304 10/16/2015 2:59am 10/16/2015 3:42am Calcium Level 8.3 mg/dL L 8.4-10.2 10/16/2015 2:59am 10/16/2015 3:42am Total Bilirubin 1.6 mg/dL H 0.2-1.3 10/16/2015 2:59am 10/16/2015 3:42am Aspartate Amino Transf (AST/SGOT) 15 U/L 14-36 10/16/2015 2:59am 10/16/2015 3:42am Alanine Aminotransferase (ALT/SGPT) 9 U/L 9-52 10/16/2015 2:59am 10/16/2015 3:42am Alkaline Phosphatase 44 U/L 38-126 10/16/2015 2:59am 10/16/2015 3:42am Total Protein 6.3 g/dL L 6.4-8.4 10/16/2015 2:59am 10/16/2015 3:42am Albumin 3.3 g/dL L 3.4-5.5 10/16/2015 2:59am 10/16/2015 3:42am Globulin 3.0 2.3-3.5 10/16/2015 2:59am 10/16/2015 3:42am Albumin/Globulin Ratio 1.100 10/16/2015 2:59am 10/16/2015 3:42am Lipase 116 U/L 23-300 10/16/2015 2:59am 10/16/2015 3:42am Procedures No known history of procedures. Encounters Encounter Location Arrival/Admit Date Discharge/Depart Date Attending Provider Departed Emergency Room [facility] 10/16/15 2:30am 10/16/15 5:55am JEREMY SALGADO MD Recent Diagnosis
--- OUTSIDE RECORDS SUMMARY | 2019-02-17 10:04 | XMS REPORT ---
Author Author RACHEL ROBLES [facility] Address [address] [place] [address] Care Team Providers Care [employer]isher [employer] Name Role Phone ROBLESRACHEL Unavailable PROBLEMS Type Condition ICD9-CM Code [id number] Code Onset Dates Condition Status SNOMED Code Problem Problems related to high-risk sexual behavior V69.2 Active 783253023 Problem Other specified symptom associated with female genital organs 625.8 Active 523932915 Problem Need for prophylactic vaccination and inoculation, Influenza V04.81 Active 037248503 Problem Unspecified genital herpes 054.10 Active 95199694 Problem Candidiasis of vulva and vagina 112.1 Active 40034264 Problem Unspecified vaginitis and vulvovaginitis 616.10 Active 672766319 Problem Leukorrhea, not specified as infective 623.5 Active 914321468 Problem Allergic rhinitis due to pollen 477.0 Active 33430777 Problem Acute sinusitis, unspecified 461.9 Active 22001348 Problem Screening for malignant neoplasm of the cervix V76.2 Active 851223810 Problem Screening examination for venereal disease V74.5 Active 084071004 Problem General counseling for prescription of oral contraceptives V25.01 Active 688470193430392 Problem Special screening examination, human papillomavirus [HPV] V73.81 Active 364822066 Problem Unspecified contraceptive management V25.9 Active 542025717 Problem examination or test, positive result V72.42 Active 250790316 Problem Other general counseling and advice for contraceptive management V25.09 Active 891089524 Problem Routine gynecological examination V72.31 Active [id number] ALLERGIES No Information ENCOUNTERS Encounter Location Date Diagnosis [facility] [address] [id number], [place] [address] Mar, Acute nasopharyngitis J00 and Cough R05 [facility] [address] [id number], [place] [address] Feb, Encounter for immunization Z23 [facility] [address] [id number] [place] [address] Oct, [facility] [place] [facility] [address] [id number] [place] [address] Oct, [facility] [place] [facility] [address] [facility] [id number] [place] [address] Sep, [facility] [place] [facility] [address] [id number] [place] [address] Sep, [facility] [place] [facility] [address] [id number] [place] [address] Sep, [facility] [place] [facility] [address] [id number] [place] [address] Sep, [facility] [place] [facility] [address] [facility] [id number] [place] [address] Sep, [facility] [place] [facility] [address] [facility] [id number], [place] [address] Aug, [facility] [place] [facility] [address] [id number] [place] [address] Aug, [facility] [place] [facility] [address] [facility] [id number], [place] [address] Jul, [facility] [place] [facility] [address] [facility] [id number], [place] [address] Jul, [facility] [place] [facility] [address] [facility] [id number], [place] [address] Jun, [facility] [place] [facility] [address] [facility] [id number] [place] [address] Jun, [facility] [place] [facility] [address] [facility] [id number], [place] [address] May, [facility] [place] [facility] [address] [facility] [id number] [place] [address] May, [facility] [place] [facility] [address] [id number] [place] [address] Apr, [facility] [place] [facility] [address] [id number] [place] [address] Apr, [facility] [place] [facility] [address] [facility] [id number] [place] [address] Apr, [facility] [place] [facility] [address] [facility] [id number] [place] [address] Apr, [facility] [place] [facility] [address] [facility] [id number] [place] [address] Apr, [facility] [place] [facility] [address] [id number] [place] [address] Apr, [facility] [place] [facility] [address] [id number] [place] [address] Jan, [facility] [place] [facility] [address] [facility] [id number] [place] [address] Jan, [facility] [place] [facility] [address] [facility] [id number] [place] [address] Dec, [facility] [place] [facility] [address] [facility] [id number], [place] [address] Dec, [facility] [place] [facility] [address] [facility] [id number], [place] [address] Dec, [facility] [id number], [place] [id number] Dec, [facility] [place] [facility] [address] [facility] [id number], [place] [address] Dec, [facility] [id number], [place] [address] Oct, [facility] [place] [facility] [address] [facility] [id number], [place] [address] Oct, [facility] [id number], [place] [id number] Jul, [facility] [place] [facility] [address] [id number], [place] [address] Jul, [facility] [address] [facility] [id number], [place] [address] Apr, [facility] [address] [id number][place] [id number] Apr, [facility] [address] [facility] [id number], [place] [address] Apr, [facility] [address] [facility] [id number], [place] [address] Apr, [facility] [address] [id number], [place] [address] Apr, [facility] [address] [id number], [place] [address] Dec, [facility] [address] [facility] [id number], [place] [address] Oct, [facility] [address] [facility] [id number], [place] [address] Sep, [facility] [address] [facility] [id number], [place] [address] Sep, [facility] [address] [facility] [id number], [place] [address] Aug, [facility] [address] [facility] [id number], [place] [address] Aug, [facility] [address] [id number], [place] [address] Aug, [facility] [address] [facility] [id number], [place] [address] 15 Aug, 2012 [facility] [address] [facility] [id number], [place] [address] Aug, [facility] [id number], [place] [id number] Aug, [facility] [address] [facility] [id number], [place] [address] Aug, [facility] [id number], [place] [id number] Aug, [facility] [address] [facility] [id number], [place] [address] Apr, [facility] [address] [facility] [id number], [place] [address] Apr, [facility] [address] [id number] [address] Apr, [facility] [address] [id number], [place] [address] Apr, [facility] [address]00565[address], [place] [address] Apr, [facility] [id number], [place] [id number] Apr, [facility] [address]00565100[place], [place] [address] Apr, [facility] [id number], [place] [address] Feb, [facility] [id number], [place] [address] Feb, [facility] [id number], [place] [address] Dec, [facility] [address] [facility] [id number], [place] [address] Dec, [facility] [place] [facility] [address] [facility] [id number], [place] [address] Oct, [facility] [address]005[address], [place] [address] Sep, [facility] [address] [facility] [id number] [place] [address] Aug, Kamran [facility]ONWO[facility] [address] [id number], [place] [address] Aug, Kamran BRONWOOD [address] [id number] [address] Jul, [facility] [address] [address] Jul, [facility] [address] [facility] [id number], [place] [address] Jul, Kamran BRONWOOD [address] [id number] [id number] Jul, IMMUNIZATIONS Vaccine Route Administration Date Status TDAP (BOOSTRIX) IM Intramuscular Mar 05, 2018 Administered VARICELLA SC Subcutaneous Mar 05, 2018 Administered SOCIAL HISTORY Never Assessed REASON FOR VISIT Immunization(s) PLAN OF CARE VITAL SIGNS MEDICATIONS Unknown Medications RESULTS No Results PROCEDURES Procedure Date Ordered Result Body Site TDAP (BOOSTRIX) Mar 05, 2018 VARICELLA Mar 05, 2018 IMMUNIZATION ADMIN, EACH ADD (please include units) Mar 05, 2018 SINGLE IMMUNIZATION ADMIN Mar 05, 2018 INSTRUCTIONS MEDICATIONS ADMINISTERED No Known Medications MEDICAL (GENERAL) HISTORY Type Description Date Surgical History appendectomy 1994 Surgical History surgery for broken nose 2002 Surgical History tumor removed from spine at 6 mos old 1988 Surgical History 2010 Hospitalization History surgeries Hospitalization History fluid around lungs 2010
--- OUTSIDE RECORDS SUMMARY | 2019-02-17 10:04 | XMS REPORT ---
Author Author JUN FOFANA [facility] Address [address] [place] [address] Care Team Providers Care Program Management Professional Name Role Phone PAIZ JUN RICHARDS Unavailable PROBLEMS Type Condition ICD9-CM Code [id number] Code Onset Dates Condition Status SNOMED Code Problem Problems related to high-risk sexual behavior V69.2 Active 948433487 Problem Other specified symptom associated with female genital organs 625.8 Active 966707590 Problem Need for prophylactic vaccination and inoculation, Influenza V04.81 Active 064332396 Problem Unspecified genital herpes 054.10 Active 79282863 Problem Candidiasis of vulva and vagina 112.1 Active 89166092 Problem Unspecified vaginitis and vulvovaginitis 616.10 Active 040161705 Problem Leukorrhea, not specified as infective 623.5 Active 266948488 Problem Allergic rhinitis due to pollen 477.0 Active 98812918 Problem Acute sinusitis, unspecified 461.9 Active 33415028 Problem Screening for malignant neoplasm of the cervix V76.2 Active 042185452 Problem Screening examination for venereal disease V74.5 Active 773604762 Problem General counseling for prescription of oral contraceptives V25.01 Active 142411185929136 Problem Special screening examination, human papillomavirus [HPV] V73.81 Active 384506518 Problem Unspecified contraceptive management V25.9 Active 391039643 Problem examination or test, positive result V72.42 Active 686087776 Problem Other general counseling and advice for contraceptive management V25.09 Active 105125535 Problem Routine gynecological examination V72.31 Active 036297278113836 ALLERGIES Substance Reaction Event Type Date Status Codeine Unknown Drug Allergy Mar, Active ENCOUNTERS Encounter Location Date Diagnosis [facility] [address] [id number], [place] [address] Mar, Acute nasopharyngitis J00 and Cough R05 [facility] [address]005[address] [place] [address] 15 Feb, 2018 Encounter for immunization Z23 [facility] [address] [id number] [place] [address] 14 Oct, 2014 [facility] [place] [facility] [address] [id number] [place] [address] Oct, [facility] [address]00565[address] [place] [address] Sep, [facility] [place] [facility] [address] [facility] [id number] [place] [address] Sep, [facility] [address] [place] [address] Sep, [facility] [place] [facility] [address] [id number] [place] [address] Sep, [facility] [place] [facility] [address] [place] [address] Sep, [facility] [place] [facility] [address] [facility] [id number] [place] [address] Aug, [facility] [place] [facility] [address] [place] [address] Aug, [facility] [place] [facility] [address] [id number] [place] [address] Jul, [facility] [place] [facility] [address]005[address] [place] [address] Jul, [facility] [place] [facility] [address] [facility] [id number] [place] [address] Jun, [facility] [place] [facility] [address] [id number] [place] [address] Jun, [facility] [place] [facility] [address] [id number] [place] [address] May, [facility] [place] [facility] [address] [id number] [place] [address] May, [facility] [place] [facility] [address] [id number] [place] [address] Apr, [facility] [place] [facility] [address] [id number] [place] [address] Apr, [facility] [place] [facility] [address] [id number] [place] [address] Apr, [facility] [place] [facility] [address] [id number] [place] [address] Apr, [facility] [place] [facility] [address] [id number] [place] [address] Apr, [facility] [place] [facility] [address] [id number] [place] [address] Apr, [facility] [place] [facility] [address] [facility] [id number] [place] [address] Jan, [facility] [place] [facility] [address] [facility] [id number], [place] [address] Jan, [facility] [place] [facility] [address] [id number] [place] [address] Dec, [facility] [place] [facility] [address] [facility] [id number], [place] [address] Dec, [facility] [place] [facility] [address] [id number], [place] [address] Dec, [id number] [id number] [address] Dec, [facility] [place] [facility] [address] [id number], [place] [address] Dec, [facility] [id number], [place] [address] Oct, [facility] [place] [facility] [address] [facility] [id number], [place] [address] Oct, [facility] [id number], [place] [address] Jul, [facility] [address] [facility] [id number], [place] [address] Jul, [facility] [place] [facility] [address] [facility] [id number], [place] [address] Apr, [facility] [id number], [place] [address] Apr, [facility] [place] [facility] [address] [facility] [id number], [place] [address] Apr, [facility] [place] [facility] [address] [id number], [place] [address] Apr, [facility] [place] [facility] [address] [id number], [place] [address] Apr, [facility] [facility] [id number], [place] [address] Dec, [facility] [place] [facility] [address] [id number], [place] [address] Oct, [facility] [place] [facility] [address]00565100[place], [place] [address] Sep, [facility] [place] [facility] [address] [id number], [place] [address] Sep, [facility] [place] [facility] [address]00565100[place], [place] [address] Aug, [facility] [place] [facility] [address] [facility] [id number], [place] [address] Aug, [facility] [id number], [place] [address] Aug, [facility] [place] [facility] [address] [facility] [id number], [place] [address] 15 Aug, 2012 [facility] [place] [facility] [address]00565100[place], [place] [address] Aug, [facility] [id number], [place] [address] Aug, [facility] [address]00565100[place], [place] [address] Aug, [facility] [id number], [place] [address] Aug, [facility] [id number] [place] [address] Apr, [facility] [id number] [place] [address] Apr, [facility] [id number] [place] [address] Apr, [facility] [id number] [place] [address] Apr, [facility] [address] [id number], [place] [address] Apr, [facility] [id number] [place] [id number] Apr, [facility] [address]00565100[place], [place] [address] Apr, [facility] [id number], [place] [address] Feb, [facility] [id number], [place] [address] Feb, [facility] [id number] [place] [id number] Dec, [facility] [address]00565100[place], [place] [address] Dec, [facility] [address]00565100[place], [place] [address] Oct, [facility] [address] [facility] [id number], [place] [address] Sep, [facility] [address] [facility] [id number], [place] [address] Aug, [facility] [address] [id number], [place] [address] Aug, [facility] [id number], [place] [id number] Jul, [facility] [id number], [place] [address] Jul, [facility] [address] [facility] [id number], [place] [address] Jul, [facility] [address]00565100[place], [place] [address] Jul, IMMUNIZATIONS No Known Immunizations SOCIAL HISTORY Never Assessed REASON FOR VISIT Congestion/shortness of breath x 2 days.--PAT Yan PLAN OF CARE Activity Details Follow Up prn Reason: VITAL SIGNS Height 65 in 2018-03-31 Weight 142.6 lbs 2018-03-31 Temperature 98.4 degrees Fahrenheit 2018-03-31 Heart Rate 70 bpm 2018-03-31 Respiratory Rate 18 2018-03-31 Oximetry 98 % 2018-03-31 BMI 23.73 kg/m2 2018-03-31 Blood pressure systolic 128 mmHg 2018-03-31 Blood pressure diastolic 88 mmHg 2018-03-31 MEDICATIONS Medication Instructions Dosage Frequency Start Date End Date Duration Status Gabapentin 300 mg Take 1 capsule by Oral route 3 times per day for 30 days Dec, Not-Taking Zithromax Z-Ovidio 250 MG Orally Once a day as directed 24h Mar, Mar, 5 day(s) Active Metronidazole 500 mg 1 tablet by Oral route 2 times per day for 7 days Apr, Not-Taking Diflucan 150 mg take 1 tablet by Oral route once 1 time per day for 1 day Dec, Not-Taking Medrol 4 MG Orally Once a day take each days dose at one time daily with food 24h Mar, Active Flonase 50 mcg/act Nasally twice a day 1 spray in each nostril 12h 10 Mar, 2018 7 days Active Augmentin 875-125 mg 1 tablet by Oral route 2 times per day for 14 day(s) Jul, Not-Taking Flagyl 500 mg 1 tablet by Oral route 2 times per day for 7 days Sep, Not-Taking RESULTS No Results PROCEDURES No Known procedures INSTRUCTIONS MEDICATIONS ADMINISTERED No Known Medications MEDICAL (GENERAL) HISTORY Type Description Date Surgical History appendectomy 1994 Surgical History surgery for broken nose 2002 Surgical History tumor removed from spine at 6 mos old 1988 Surgical History 2010 Hospitalization History surgeries Hospitalization History fluid around lungs 2010
--- OUTSIDE RECORDS SUMMARY | 2019-02-17 10:05 | XMS REPORT | Continuity of Care Document ---
Demographics Preferred Language Unknown Marital Status Unknown [employer] Affiliation Unknown Race Unknown Ethnic Group Unknown Author Organization Unknown Address Unknown Phone Unavailable Allergies Active Description Code Type Severity Reaction Onset Reported/Identified Relationship to Patient Clinical Status Yes Codeine Drug Allergy 08/06/2011 Yes Codeine Drug Allergy N/A N/A 08/06/2011 Medications There is no data. Problems Date Dx Coded Attending Type Code Diagnosis Diagnosed By 08/06/2011 THOMAS GARCIA MD 112.1 Candidiasis Vaginal 08/06/2011 THOMAS GARCIA MD V25.09 CONTRACEPTIVE COUNSELING - GENERAL 08/06/2011 THOMAS GARCIA MD V69.2 HIGH-RISK SEXUAL BEHAVIOR 08/06/2011 THOMAS GARCIA MD 112.1 Candidiasis Vaginal 08/06/2011 THOMAS GARCIA MD V25.09 CONTRACEPTIVE COUNSELING - GENERAL 08/06/2011 THOMAS GARCIA MD V69.2 HIGH-RISK SEXUAL BEHAVIOR 08/06/2011 THOMAS GARCIA MD 112.1 Candidiasis Vaginal 08/06/2011 THOMAS GARCIA MD V25.09 CONTRACEPTIVE COUNSELING - GENERAL 08/06/2011 THOMAS GARCIA MD V69.2 HIGH-RISK SEXUAL BEHAVIOR 08/06/2011 112.1 Candidiasis Vaginal 08/06/2011 V25.09 CONTRACEPTIVE COUNSELING - GENERAL 08/06/2011 V69.2 HIGH-RISK SEXUAL BEHAVIOR 08/06/2011 THOMAS GARCIA MD 112.1 Candidiasis Vaginal 08/06/2011 THOMAS GARCIA MD V25.09 CONTRACEPTIVE COUNSELING - GENERAL 08/06/2011 THOMAS GARCIA MD V69.2 HIGH-RISK SEXUAL BEHAVIOR 08/06/2011 THOAMS GARCIA MD 112.1 Candidiasis Vaginal 08/06/2011 THOMAS GARCIA MD V25.09 CONTRACEPTIVE COUNSELING - GENERAL 08/06/2011 THOMAS GARCIA MD V69.2 HIGH-RISK SEXUAL BEHAVIOR 08/06/2011 THOMAS GARCIA MD 112.1 Candidiasis Vaginal 08/06/2011 THOMAS GARCIA MD V25.09 CONTRACEPTIVE COUNSELING - GENERAL 08/06/2011 JOSE MD, THOMAS A V69.2 HIGH-RISK SEXUAL BEHAVIOR 08/06/2011 THOMAS GARCIA MD 112.1 Candidiasis Vaginal 08/06/2011 THOMAS GARCIA MD V25.09 CONTRACEPTIVE COUNSELING - GENERAL 08/06/2011 THOMAS GARCIA MD V69.2 HIGH-RISK SEXUAL BEHAVIOR 08/06/2011 THOMAS GARCIA MD 112.1 Candidiasis Vaginal 08/06/2011 THOMAS GARCIA MD V25.09 CONTRACEPTIVE COUNSELING - GENERAL 08/06/2011 THOMAS GARCIA MD V69.2 HIGH-RISK SEXUAL BEHAVIOR 08/06/2011 CHANDANAMiranda AGARWAL KULWINDER A 112.1 Candidiasis Vaginal 08/06/2011 CHANDANA APRN, KULWINDER A V25.09 CONTRACEPTIVE COUNSELING - GENERAL 08/06/2011 CHANDANA APRN, KULWINDER A V69.2 HIGH-RISK SEXUAL BEHAVIOR 08/06/2011 CHANDANAMiranda AGARWAL KULWINDER A 112.1 Candidiasis Vaginal 08/06/2011 CHANDANAMiranda AGARWAL KULWINDER A V25.09 CONTRACEPTIVE COUNSELING - GENERAL 08/06/2011 CHANDANA APRN, KULWINDER A V69.2 HIGH-RISK SEXUAL BEHAVIOR 08/20/2011 THOMAS GARCIA MD 054.10 GENITAL HERPES UNSPECIFIED 08/20/2011 THOMAS GARCIA MD 054.10 GENITAL HERPES UNSPECIFIED 08/20/2011 THOMAS GARCIA MD 054.10 GENITAL HERPES UNSPECIFIED 08/20/2011 054.10 GENITAL HERPES UNSPECIFIED 08/20/2011 THOMAS GARCIA MD 054.10 GENITAL HERPES UNSPECIFIED 08/20/2011 THOMAS GARCIA MD 054.10 GENITAL HERPES UNSPECIFIED 08/20/2011 THOMAS GARCIA MD 054.10 GENITAL HERPES UNSPECIFIED 08/20/2011 THOMAS GARCIA MD 054.10 GENITAL HERPES UNSPECIFIED 08/20/2011 THOMAS GARCIA MD 054.10 GENITAL HERPES UNSPECIFIED 08/20/2011 KULWINDER ELLINGTON APRN A 054.10 GENITAL HERPES UNSPECIFIED 08/20/2011 KULWINDER ELLINGTON APRN A 054.10 GENITAL HERPES UNSPECIFIED 01/04/2012 THOMAS GARCIA MD 477.0 ALLERGIC RHINITIS - POLLEN 01/04/2012 THOMAS GARCIA MD 477.0 ALLERGIC RHINITIS - POLLEN 01/04/2012 THOMAS GARCIA MD 477.0 ALLERGIC RHINITIS - POLLEN 01/04/2012 477.0 ALLERGIC RHINITIS - POLLEN 01/04/2012 THOMAS GARCIA MD 477.0 ALLERGIC RHINITIS - POLLEN 01/04/2012 THOMAS GARCIA MD 477.0 ALLERGIC RHINITIS - POLLEN 01/04/2012 THOMAS GARCIA MD 477.0 ALLERGIC RHINITIS - POLLEN 01/04/2012 THOMAS GARCIA MD 477.0 ALLERGIC RHINITIS - POLLEN 01/04/2012 THOMAS GARCIA MD 477.0 ALLERGIC RHINITIS - POLLEN 01/04/2012 KULWINDER ELLINGTON APRN 477.0 ALLERGIC RHINITIS - POLLEN 01/04/2012 KULWINDER ELLINGTON APRN 477.0 ALLERGIC RHINITIS - POLLEN 03/04/2012 THOMAS GARCIA MD V72.42 Test Positive 03/04/2012 TOHMAS GARCIA MD V72.42 Test Positive 03/04/2012 THOMAS GARCIA MD V72.42 Test Positive 03/04/2012 V72.42 Test Positive 03/04/2012 THOMAS GARCIA MD V72.42 Test Positive 03/04/2012 THOMAS GARCIA MD V72.42 Test Positive 03/04/2012 THOMAS GARCIA MD V72.42 Test Positive 03/04/2012 THOMAS GARCIA MD V72.42 Test Positive 03/04/2012 THOMAS GARCIA MD V72.42 Test Positive 03/04/2012 KULWINDER ELLINGTON APRN V72.42 Test Positive 03/04/2012 KULWINDER ELLINGTON APRN V72.42 Test Positive 03/12/2012 THOMAS GARCIA MD 623.5 VAGINAL DISCHARGE 03/12/2012 THOMAS GARCIA MD V72.31 PULP PLANT SUPERVISOR EXAM, ROUTINE 03/12/2012 THOMAS GARCIA MD 623.5 VAGINAL DISCHARGE 03/12/2012 THOMAS GARCIA MD V72.31 PULP PLANT SUPERVISOR EXAM, ROUTINE 03/12/2012 THOMAS GARCIA MD 623.5 VAGINAL DISCHARGE 03/12/2012 JOSE MD, THOMAS A V72.31 PULP PLANT SUPERVISOR EXAM, ROUTINE 03/12/2012 623.5 VAGINAL DISCHARGE 03/12/2012 V72.31 PULP PLANT SUPERVISOR EXAM, ROUTINE 03/12/2012 THOMAS GARCIA MD 623.5 VAGINAL DISCHARGE 03/12/2012 THOMAS GARCIA MD V72.31 PULP PLANT SUPERVISOR EXAM, ROUTINE 03/12/2012 THOMAS GARCIA MD 623.5 VAGINAL DISCHARGE 03/12/2012 THOMAS GARCIA MD V72.31 PULP PLANT SUPERVISOR EXAM, ROUTINE 03/12/2012 THOMAS GARCIA MD 623.5 VAGINAL DISCHARGE 03/12/2012 THOMAS GARCIA MD V72.31 PULP PLANT SUPERVISOR EXAM, ROUTINE 03/12/2012 THOMAS GARCIA MD 623.5 VAGINAL DISCHARGE 03/12/2012 THOMAS GARCIA MD V72.31 PULP PLANT SUPERVISOR EXAM, ROUTINE 03/12/2012 THOMAS GARCIA MD 623.5 VAGINAL DISCHARGE 03/12/2012 THOMAS GARCIA MD V72.31 PULP PLANT SUPERVISOR EXAM, ROUTINE 03/12/2012 CHANDANA PARAMEDIC SUPERVISOR, KULWINDER A 623.5 VAGINAL DISCHARGE 03/12/2012 CHANDANA PARAMEDIC SUPERVISOR, KULWINDER A V72.31 PULP PLANT SUPERVISOR EXAM, ROUTINE 03/12/2012 CHANDANA PARAMEDIC SUPERVISOR, KULWINDER A 623.5 VAGINAL DISCHARGE 03/12/2012 CHANDANA PARAMEDIC SUPERVISOR, KULWINDER A V72.31 PULP PLANT SUPERVISOR EXAM, ROUTINE 04/28/2012 THOMAS GARCIA MD V04.81 FLU DX (3 YRS AND ABOVE, IM) 04/28/2012 THOMAS GARCIA MD V25.9 Gynecologic Services Contraceptive Management 04/28/2012 THOMAS GARCIA MD V04.81 FLU DX (3 YRS AND ABOVE, IM) 04/28/2012 THOMAS GARCIA MD V25.9 Gynecologic Services Contraceptive Management 04/28/2012 THOMAS GARCIA MD V04.81 FLU DX (3 YRS AND ABOVE, IM) 04/28/2012 THOMAS GARCIA MD V25.9 Gynecologic Services Contraceptive Management 04/28/2012 V04.81 FLU DX (3 YRS AND ABOVE, IM) 04/28/2012 V25.9 Gynecologic Services Contraceptive Management 04/28/2012 THOMAS GARCIA MD V04.81 FLU DX (3 YRS AND ABOVE, IM) 04/28/2012 THOMAS GARCIA MD V25.9 Gynecologic Services Contraceptive Management 04/28/2012 THOMAS GARCIA MD V04.81 FLU DX (3 YRS AND ABOVE, IM) 04/28/2012 THOMAS GARCIA MD V25.9 Gynecologic Services Contraceptive Management 04/28/2012 THOMAS GARCIA MD V04.81 FLU DX (3 YRS AND ABOVE, IM) 04/28/2012 THOMAS GARCIA MD V25.9 Gynecologic Services Contraceptive Management 04/28/2012 THOMAS GARCIA MD V04.81 FLU DX (3 YRS AND ABOVE, IM) 04/28/2012 THOMAS GARCIA MD V25.9 Gynecologic Services Contraceptive Management 04/28/2012 THOMAS GARCIA MD V04.81 FLU DX (3 YRS AND ABOVE, IM) 04/28/2012 THOMAS GARCIA MD V25.9 Gynecologic Services Contraceptive Management 04/28/2012 AMRIK ELLINGTON APRNIDI A V04.81 FLU DX (3 YRS AND ABOVE, IM) 04/28/2012 AMRIK ELLINGTON APRNIDI A V25.9 Gynecologic Services Contraceptive Management 04/28/2012 CHANDANA AGARWAL KULWINDER A V04.81 FLU DX (3 YRS AND ABOVE, IM) 04/28/2012 AMRIK ELLINGTON APRNIDI A V25.9 Gynecologic Services Contraceptive Management 09/02/2012 THOMAS GARCIA MD V74.5 STD SCREEN 09/02/2012 THOMAS GARCIA MD V76.2 CERVICAL CANCER SCREENING (PAP SMEAR) 09/02/2012 THOMAS GARCIA MD V74.5 STD SCREEN 09/02/2012 THOMAS GARCIA MD V76.2 CERVICAL CANCER SCREENING (PAP SMEAR) 09/02/2012 V74.5 STD SCREEN 09/02/2012 V76.2 CERVICAL CANCER SCREENING (PAP SMEAR) 09/02/2012 THOMAS GARCIA MD V74.5 STD SCREEN 09/02/2012 THOMAS GARCIA MD V76.2 CERVICAL CANCER SCREENING (PAP SMEAR) 09/02/2012 THOMAS GARCIA MD V74.5 STD SCREEN 09/02/2012 THOMAS GARCIA MD V76.2 CERVICAL CANCER SCREENING (PAP SMEAR) 09/02/2012 THOMAS GARCIA MD V74.5 STD SCREEN 09/02/2012 THOMAS GARCIA MD V76.2 CERVICAL CANCER SCREENING (PAP SMEAR) 09/02/2012 THOMAS GARCIA MD V74.5 STD SCREEN 09/02/2012 THOMAS GARCIA MD V76.2 CERVICAL CANCER SCREENING (PAP SMEAR) 09/02/2012 THOMAS GARCIA MD V74.5 STD SCREEN 09/02/2012 THOMAS GARCIA MD V76.2 Cervical Pap Smear 09/02/2012 KULWINDER ELLINGTON APRN A V74.5 STD SCREEN 09/02/2012 KULWINDER ELLINGTON APRN V76.2 Cervical Pap Smear 09/02/2012 KULWINDER ELLINGTON APRN A V74.5 STD SCREEN 09/02/2012 KULWINDER ELLINGTON APRN A V76.2 Cervical Pap Smear 09/10/2012 THOMAS GARCIA MD V73.81 HPV SCREENING 09/10/2012 V73.81 HPV SCREENING 09/10/2012 THOMAS GARCIA MD V73.81 HPV SCREENING 09/10/2012 THOMAS GARCIA MD V73.81 HPV SCREENING 09/10/2012 THOMAS GARCIA MD V73.81 HPV SCREENING 09/10/2012 THOMAS GARCIA MD V73.81 HPV SCREENING 09/10/2012 THOMAS GARCIA MD V73.81 HPV SCREENING 09/10/2012 KULWINDER ELLINGTON APRN A V73.81 HPV SCREENING 09/10/2012 KULWINDER ELLINGTON APRN V73.81 HPV SCREENING 01/13/2014 THOMAS GARCIA MD 616.10 VAGINITIS 01/13/2014 KULWINDER ELLINGTON APRN A 616.10 VAGINITIS 01/13/2014 KULWINDER ELLINGTON APRN A 616.10 VAGINITIS 05/12/2014 KULWINDER ELLINGTON APRN A 112.1 CANDIDIASIS OF VULVA AND VAGINA 05/12/2014 KULWINDER ELLINGTON APRN A V25.01 CONTRACEPTION - ORAL CONTRACEPTION 05/12/2014 KULWINDER ELLINGTON APRN A 112.1 CANDIDIASIS OF VULVA AND VAGINA 05/12/2014 KULWINDER ELLINGTON APRN A V25.01 CONTRACEPTION - ORAL CONTRACEPTION 06/24/2014 KULWINDER ELLINGTON APRN 625.8 OTHER SPECIFIED SYMPTOMS ASSOCIATED WITH FEMALE GENITAL ORGANS Procedures Code Description [place] [address] URINE TEST (IN-HOUSE) 08/26/2012 J1055 DEPO-PROVERA INJ 150 MG 08/26/2012 11581 THERAPUTIC INJ SQ/IM 08/26/2012 63215 ROUTINE VENIPUNCTURE 09/02/2012 63236 TRICHOMONAS (IN-HOUSE) 09/02/2012 52258 HIV ANTIBODIES (RML) 09/03/2012 12501 SYPHILLIS-[facility] 09/05/2012 34938 HEP C ANTIBODY ([facility]) 09/05/2012 53605 GC/CHLAM PROBE ([facility]) 09/05/2012 Q0091 PAP SMEAR OBTAIN SMEAR 09/05/2012 11960 PAP SMEAR 09/05/2012 79219 CULTURE UROGENITAL 09/05/2012 Q0091 PAP SMEAR OBTAIN SMEAR 09/10/2012 39564 PAP SMEAR 09/11/2012 85960 URINE TEST (IN-HOUSE) 12/30/2012 45738 THERAPUTIC INJ SQ/IM 12/30/2012 J1050 DEPO PROVERA 12/30/2012 80097 URINE TEST (IN-HOUSE) 05/20/2013 51583 THERAPUTIC INJ SQ/IM 05/20/2013 J1050 DEPO PROVERA 05/20/2013 04241 THERAPUTIC INJ SQ/IM 08/05/2013 35471 TEST, URINE (IN-HOUSE) 08/05/2013 J1050 DEPO PROVERA 08/05/2013 94491 THERAPUTIC INJ SQ/IM 11/10/2013 08029 TEST, URINE (IN-HOUSE) 11/10/2013 J1050 DEPO PROVERA 11/10/2013 42429 CULTURE UROGENITAL 01/14/2014 28370 PAP SMEAR 01/14/2014 Q0091 PAP SMEAR OBTAIN SMEAR 01/14/2014 97729 SYPHILLIS-[facility] 05/12/2014 92086 HIV ([facility]) 05/12/2014 35764 GC/CHLAM PROBE ([facility]) 05/12/2014 88059 TEST, URINE (IN-HOUSE) 05/12/2014 28702 TRICHOMONAS (IN-HOUSE) 05/12/2014 12111 A1C (RML) 05/13/2014 60594 CULTURE UROGENITAL 05/16/2014 Results Test Result Range RPR, Rfx Qn RPR/Confirm TP - 11/18/18 17:00 RPR Non Reactive Non Reactive HCV Antibody - 11/18/18 17:00 Hep C Virus Ab <0.1 s/co ratio 0.0-0.9 HBsAg Screen - 11/18/18 17:00 HBsAg Screen Negative Negative Encounters ACCT No. Visit Date/Time Discharge Status Pt. Type Provider Facility Loc./Unit Complaint [id number] 11/20/2018 06:05:00 Document Registration [id number] 11/20/2018 08:11:00 Document Registration [id number] 11/22/2018 06:06:00 Document Registration [id number] 06/24/2014 15:52:00 06/24/2014 23:59:59 CLS Outpatient KULWINDER ELLINGTON APRN [id number] 05/12/2014 15:40:00 05/12/2014 23:59:59 CLS Outpatient KULWINDER ELLINGTON APRN [id number] 01/13/2014 09:31:00 01/13/2014 23:59:59 CLS Outpatient THOMAS GARCIA MD [id number] 11/10/2013 10:52:00 11/10/2013 23:59:59 CLS Outpatient THOMAS GARCIA MD [id number] 08/05/2013 11:39:00 08/05/2013 23:59:59 CLS Outpatient THOMAS GARCIA MD [id number] 05/20/2013 11:52:00 05/20/2013 23:59:59 CLS Outpatient THOMAS GARCIA MD [id number] 12/30/2012 12:16:00 12/30/2012 23:59:59 CLS Outpatient THOMAS GARCIA MD [id number] 10/08/2012 11:25:00 10/08/2012 23:59:59 CLS Outpatient [id number] 09/10/2012 11:35:00 09/10/2012 23:59:59 CLS Outpatient THOMAS GARCIA MD [id number] 09/02/2012 14:52:00 09/02/2012 23:59:59 CLS Outpatient THOMAS GARCIA MD [id number] 08/26/2012 11:47:00 08/26/2012 23:59:59 CLS Outpatient THOMAS GARCIA MD [id number] 02/11/2019 16:53:23 02/11/2019 23:59:59 CLS Outpatient Riana, Aliza [id number] 11/18/2018 16:58:45 11/18/2018 23:59:59 CLS Outpatient Aliza Mayers [id number] 10/07/2017 17:35:49 10/07/2017 23:59:59 CLS Outpatient Aliza Mayers [id number] 05/21/2017 16:03:07 05/21/2017 23:59:59 CLS Outpatient Gretchen Santos [id number] 03/18/2017 16:57:43 03/18/2017 23:59:59 CLS Outpatient Riana, Aliza [id number] 03/08/2015 15:06:44 03/08/2015 23:59:59 CLS Outpatient Bushra Whitney [id number] 02/16/2019 13:40:00 ACT Out[facility]
--- NOTE | 2019-02-17 10:36 | ED Abdominal Pain ---
General Chief Complaint: Abdominal/GI Problems Stated Complaint: ABD PAIN Nursing Triage Note: PT AMB TO [facility] 10 WITH COMPLAINT OF LLQ ABD PAIN. STATES HAS BEEN GOING ON FOR TWO WEEKS. WENT TO DR DIANE LAST WEAK AND WAS TOLD POSSIBLE ENDOMETRIOSIS. PT STATES LAST BM WAS FRIADY. HAS TAKEN LAXATIVES, WITH NO SUCCESS. Sepsis Screen: No Definite Risk Source of Information: Patient Exam Limitations: No Limitations History of Present Illness Date Seen by Provider: Feb 17, 2019 Time Seen by Provider: 10:34 Initial Comments To ER with left periumbilical abdominal pain getting worse over the past 2 years. No fevers or chills. No vomiting. She has had constipation with a last normal bowel movement about 4 days ago. She tried to alleviate this by taking laxatives at home, when questioned about which type of laxative she states "Pedialax, Mylanta and Imodium". No history of this. She has tried Xanax and marijuana for this as well with no improvement in the pain. 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 Timing/Duration: Other (2 weeks) Severity/Quality: Moderate Location: Periumbilical Radiation: LLQ Activities at Onset: None Associated Symptoms: Denies Symptoms Allergies and Home Medications Allergies Coded Allergies: codeine (Verified Allergy, Unknown, 02/17/19) Home Medications Dicyclomine HCl 20 Mg Tablet, 20 MG PO TID Prescribed by: MIA BLAIR on 02/17/19 0252 Patient Home Medication List Home Medication List Reviewed: Yes Review of Systems Review of Systems Constitutional: see HPI EENTM: No Symptoms Reported Respiratory: No Symptoms Reported Cardiovascular: No Symptoms Reported Gastrointestinal: See HPI, Abdominal Pain, Constipated Genitourinary: No Symptoms Reported Musculoskeletal: no symptoms reported Skin: no symptoms reported Psychiatric/Neurological: No Symptoms Reported Endocrine: No Symptoms Reported Hematologic/Lymphatic: No Symptoms Reported Past Ejsbktm-Hxlopp-Djmovq Hx Patient Social History Alcohol Use: Denies Use Recreational Drug Use: Yes Drug of Choice: marijuana Smoking Status: Never a Smoker Recent Foreign Travel: No Contact w/Someone Who Travel: No Recent Infectious Disease Expo: No Recent Hopitalizations: No Physical Abuse: No Sexual Abuse: No Mistreated: No Fear: No Immunizations Up To Date Tetanus Booster (TDap): Unknown PED Vaccines UTD: Yes Seasonal Allergies Seasonal Allergies: No Past Medical History Surgeries: Yes (SPINE) Appendectomy, Section, Nose, Orthopedic Respiratory: No Cardiac: No Neurological: No Genitourinary: No Gastrointestinal: No Musculoskeletal: No Endocrine: No HEENT: No Cancer: No Psychosocial: No Integumentary: No Blood Disorders: No Physical Exam Vital Signs Vital Signs - First Documented 02/17/19 09:54 Temp 98.4 Pulse 75 Resp 16 B/P (MAP) 133/92 (106) Pulse Ox 97 O2 Delivery Room Air Capillary Refill : Less Than 3 Seconds Height/Weight/BMI Height: 5'5.00" Weight: 156lbs. oz. 70.358397at; BMI Method:Stated General Appearance: WD/WN, no apparent distress Respiratory: no respiratory distress, no accessory muscle use Gastrointestinal: normal bowel sounds, soft, tenderness Extremities: normal range of motion, non-tender Neurologic/Psychiatric: alert, normal mood/affect, oriented x 3 Skin: normal color, warm/dry Progress/Results/Core Measures Results/Orders Lab Results Laboratory Tests Test 02/17/19 10:02 02/17/19 10:54 02/17/19 11:45 Range/Units White Blood Count 10.6 4.3-11.0 10^3/uL Red Blood Count 4.62 4.35-5.85 10^6/uL Hemoglobin 13.8 11.5-16.0 G/DL Hematocrit 41 35-52 % Mean Corpuscular Volume 88 80-99 FL Mean Corpuscular Hemoglobin 30 25-34 PG Mean Corpuscular Hemoglobin Concent 34 32-36 G/DL Red Cell Distribution Width 12.3 10.0-14.5 % Platelet Count 431 H 130-400 10^3/uL Mean Platelet Volume 9.8 7.4-10.4 FL Neutrophils (%) (Auto) 75 42-75 % Lymphocytes (%) (Auto) 19 12-44 % Monocytes (%) (Auto) 5 0-12 % Eosinophils (%) (Auto) 1 0-10 % Basophils (%) (Auto) 0 0-10 % Neutrophils # (Auto) 8.0 H 1.8-7.8 X 10^3 Lymphocytes # (Auto) 2.0 1.0-4.0 X 10^3 Monocytes # (Auto) 0.6 0.0-1.0 X 10^3 Eosinophils # (Auto) 0.1 0.0-0.3 10^3/uL Basophils # (Auto) 0.0 0.0-0.1 10^3/uL Sodium Level 138 135-145 MMOL/L Potassium Level 3.5 L 3.6-5.0 MMOL/L Chloride Level 106 98-107 MMOL/L Carbon Dioxide Level 18 L 21-32 MMOL/L Anion Gap 14 5-14 MMOL/L Blood Urea Nitrogen 10 7-18 MG/DL Creatinine 0.96 0.60-1.30 MG/DL Estimat Glomerular Filtration Rate > 60 BUN/Creatinine Ratio 10 Glucose Level 100 70-105 MG/DL Calcium Level 9.7 8.5-10.1 MG/DL Corrected Calcium 9.3 8.5-10.1 MG/DL Total Bilirubin 1.3 H 0.1-1.0 MG/DL Aspartate Amino Transf (AST/SGOT) 19 5-34 U/L Alanine Aminotransferase (ALT/SGPT) 13 0-55 U/L Alkaline Phosphatase 58 40-136 U/L Total Protein 7.6 6.4-8.2 GM/DL Albumin 4.5 3.2-4.5 GM/DL Serum Test, Qualitative NEGATIVE NEGATIVE Urine Color YELLOW Urine Clarity CLEAR Urine pH 6 5-9 Urine Specific [place] 1.020 1.016-1.022 Urine Protein 2+ H NEGATIVE Urine Glucose (UA) NEGATIVE NEGATIVE Urine Ketones 4+ H NEGATIVE Urine Nitrite NEGATIVE NEGATIVE Urine Bilirubin NEGATIVE NEGATIVE Urine Urobilinogen 1 NORMAL MG/DL Urine Leukocyte Esterase 1+ H NEGATIVE Urine RBC (Auto) 2+ H NEGATIVE Urine RBC 0-2 /HPF Urine WBC RARE /HPF Urine Squamous Epithelial Cells 5-10 /HPF Urine Crystals NONE /LPF Urine Bacteria TRACE /HPF Urine Casts NONE /LPF Urine Mucus NEGATIVE /LPF Urine Culture Indicated NO Urine Opiates Screen NEGATIVE NEGATIVE Urine Oxycodone Screen NEGATIVE NEGATIVE Urine Methadone Screen NEGATIVE NEGATIVE Urine Propoxyphene Screen NEGATIVE NEGATIVE Urine Barbiturates Screen NEGATIVE NEGATIVE Ur Tricyclic Antidepressants Screen NEGATIVE NEGATIVE Urine Phencyclidine Screen NEGATIVE NEGATIVE Urine Amphetamines Screen NEGATIVE NEGATIVE Urine Methamphetamines Screen NEGATIVE NEGATIVE Urine Benzodiazepines Screen POSITIVE H NEGATIVE Urine Cocaine Screen NEGATIVE NEGATIVE Urine Cannabinoids Screen POSITIVE H NEGATIVE Micro Results Microbiology 02/17/19 Genital Culture, Resulted Pending 02/17/19 Wet Prep - Final, Resulted My Orders Orders - MIA BLAIR APRN Cbc With Automated Diff (02/17/19 10:32) Comprehensive Metabolic Panel (02/17/19 10:32) Ua Culture If Indicated (02/17/19 10:32) Drug Screen Stat (Urine) (02/17/19 10:32) Ed Iv/Invasive Line Start (02/17/19 10:32) Ct Abdomen/Pelvis W (02/17/19 10:32) Ketorolac Injection (Toradol Injection) (02/17/19 10:45) Hcg,Qualitative Serum (02/17/19 10:32) Wet Prep (02/17/19 11:39) Chlamydia Trachomatis Swab (02/17/19 11:39) Neisseria Gonorrhea Swab (02/17/19 11:39) Genital Culture (02/17/19 11:39) Dicyclomine Capsule (Bentyl Capsule) (02/17/19 12:00) Medications Given in ED Current Medications Medications Dose Ordered Sig/Favian Route Start Time Stop Time Status Last Admin Dose Admin Ketorolac Tromethamine 30 mg ONCE ONCE IVP 02/17/19 10:45 02/17/19 10:46 DC 02/17/19 10:54 30 MG Vital Signs/I&O 02/17/19 09:54 Temp 98.4 Pulse 75 Resp 16 B/P (MAP) 133/92 (106) Pulse Ox 97 O2 Delivery Room Air Blood Pressure Mean: 106 Diagnostic Imaging Diagonstic Imaging: CT Comments NAME: KYAW MARTINEZ REC#: [id number] PT STATUS: REG ER : 1990 PHYSICIAN: MIA BLAIR APRN ADMIT DATE: 02/17/19/ER Draft Date of Exam:02/17/19 CT ABDOMEN/PELVIS W PROCEDURE: CT abdomen and pelvis with contrast. TECHNIQUE: Multiple contiguous axial images were obtained through the abdomen and pelvis after administration of intravenous contrast. Auto Exposure Controls were utilized during the CT exam to meet ALARA standards for radiation dose reduction. INDICATION: Left lower quadrant pain. FINDINGS: No comparison available. Limited views of lower thorax are normal. Liver is normal. No focal liver lesions are seen. Gallbladder is normal. No biliary ductal dilation. Portal vein is patent. Pancreas, spleen and adrenal glands are normal. Kidneys enhance symmetrically without focal lesion. No hydronephrosis. Urinary bladder is normal. Uterus and ovaries are normal for age. The CT appearance of the cervix is likely normal, but is larger than usually seen. There is no free fluid. No dilated loops of large or small bowel. No obstruction or inflammation. No abdominal or pelvic lymphadenopathy. No suspicious osseous lesions are seen. IMPRESSION: 1. The cervix is likely normal for age, but is more full than often seen. Consider ultrasound for further evaluation as clinically indicated. Dictated on workstation # [id number] Dict: 02/17/19 1127 Trans: 02/17/19 1135 [id number] Interpreted by: SHABBIR MAGAÑA MD Electronically signed by: Departure Communication (Admissions) She questions the possibility of irritable bowel syndrome and potential rel ationship between her abdominal pain and anxiety. She states she is very anxious person and doesn't have it treated with any medication. She states that to her family members have irritable bowel syndrome. Pelvic exam done with Erickson WHELAN at the bedside reveals a normal-appearing cervix without cervical motion tenderness or discharge. Impression Primary Impression: Abdominal pain Qualified Codes: R10.33 - Periumbilical pain Disposition: HOME, SELF-CARE Condition: Stable Departure-Patient Inst. Decision time for Depature: 11:52 Patient Instructions: Acute Abdomen (Belly Pain), Adult (DC), Irritable Bowel Syndrome (DC) Add. Discharge Instructions: 1. Medication as directed 2. Return to ER for any concerns 3. Follow-up with your doctor next week All discharge instructions reviewed with patient and/or family. Voiced und erstanding. Scripts Oxycodone HCl/Acetaminophen (Percocet 5-325 mg Tablet) 1 Each Tablet 1 TAB PO Q4H for PAIN-MODERATE MDD 6 TABS for 7 Days, #10 TAB Prov: MIA BLAIR SERVICE TECHNICIAN [employer]IER 02/17/19 Dicyclomine HCl (Dicyclomine HCl) 20 Mg Tablet 20 MG PO TID, #30 TAB Prov: MIA BLAIR SERVICE TECHNICIAN COPIER 02/17/19 MIA BLAIR APRN Feb 17, 2019 10:36
[2019-02-17 10:39] LABS: BASOPHILS % (AUTO) 0 % (0-10); EOSINOPHILS # (AUTO) 0.1 10^3/uL (0.0-0.3); EOSINOPHILS % (AUTO) 1 % (0-10); HEMATOCRIT 41 % (35-52); HEMOGLOBIN 13.8 G/DL (11.5-16.0); LYMPHOCYTES % (AUTO) 19 % (12-44); MEAN CORPUSCULAR HEMOGLOBIN 30 PG (25-34); MEAN CORPUSCULAR HGB CONC 34 G/DL (32-36); MEAN CORPUSCULAR VOLUME 88 FL (80-99); MEAN PLATELET VOLUME 9.8 FL (7.4-10.4); MONOCYTES # (AUTO) 0.6 X 10^3 (0.0-1.0); MONOCYTES % (AUTO) 5 % (0-12); NEUTROPHILS % (AUTO) 75 % (42-75); PLATELET COUNT 431 10^3/uL (130-400); RED CELL DISTRIBUTION WIDTH 12.3 % (10.0-14.5); WHITE BLOOD COUNT 10.6 10^3/uL (4.3-11.0)
[2019-02-17] MEDS ORDERED: KETOROLAC 30 MG/ML VIAL IVP ONE (10:45)
[2019-02-17 10:50] LABS: ALANINE AMINOTRANSFERASE 13 U/L (0-55); ALBUMIN 4.5 GM/DL (3.2-4.5); ALKALINE PHOSPHATASE 58 U/L (40-136); BILIRUBIN,TOTAL 1.3 MG/DL (0.1-1.0); BUN/CREATININE RATIO 10; CALCIUM 9.7 MG/DL (8.5-10.1); CARBON DIOXIDE 18 MMOL/L (21-32); CHLORIDE 106 MMOL/L (98-107); CREATININE SERUM 0.96 MG/DL (0.60-1.30); GFR ESTIMATED > 60; GLUCOSE 100 MG/DL (70-105); POTASSIUM 3.5 MMOL/L (3.6-5.0); SODIUM 138 MMOL/L (135-145); TOTAL PROTEIN 7.6 GM/DL (6.4-8.2)
[2019-02-17 11:06] LABS: BILIRUBIN,URINE NEGATIVE (NEGATIVE); CLARITY,URINE CLEAR; COLOR,URINE YELLOW; GLUCOSE, URINE (UA) NEGATIVE (NEGATIVE); KETONES,URINE 4+ (NEGATIVE); LEUKOCYTE ESTERASE ,URINE 1+ (NEGATIVE); NITRITE,URINE NEGATIVE (NEGATIVE); PH,URINE 6 (5-9); PROTEIN,URINE 2+ (NEGATIVE); UROBILINOGEN,URINE 1 MG/DL (NORMAL)
[2019-02-17 11:14] LABS: BACTERIA,URINE TRACE /HPF; RBC,URINE 0-2 /HPF; WBC,URINE RARE /HPF
[2019-02-17 11:22] LABS: AMPHETAMINE SCREEN, URINE NEGATIVE (NEGATIVE); BARBITURATE SCREEN URINE NEGATIVE (NEGATIVE); BENZODIAZEPINES SCREEN URINE POSITIVE (NEGATIVE); CANNABINOID SCREEN, URINE POSITIVE (NEGATIVE); COCAINE SCREEN URINE NEGATIVE (NEGATIVE); METHADONE STAT NEGATIVE (NEGATIVE); METHAMPHETAMINE SCREEN URINE S NEGATIVE (NEGATIVE); OPIATE SCREEN URINE NEGATIVE (NEGATIVE); OXYCODONE STAT NEGATIVE (NEGATIVE); PROPOXYPHENE STAT NEGATIVE (NEGATIVE); TRICYCLIC ANTIDEPRESSANTS SCRE NEGATIVE (NEGATIVE)
--- NOTE | 2019-02-17 11:36 | Diagnostic Imaging Report ---
PROCEDURE: CT abdomen and pelvis with contrast. TECHNIQUE: Multiple contiguous axial images were obtained through the abdomen and pelvis after administration of intravenous contrast. Auto Exposure Controls were utilized during the CT exam to meet ALARA standards for radiation dose reduction. INDICATION: Left lower quadrant pain. FINDINGS: No comparison available. Limited views of lower thorax are normal. Liver is normal. No focal liver lesions are seen. Gallbladder is normal. No biliary ductal dilation. Portal vein is patent. Pancreas, spleen and adrenal glands are normal. Kidneys enhance symmetrically without focal lesion. No hydronephrosis. Urinary bladder is normal. Uterus and ovaries are normal for age. The CT appearance of the cervix is likely normal, but is larger than usually seen. There is no free fluid. No dilated loops of large or small bowel. No obstruction or inflammation. No abdominal or pelvic lymphadenopathy. No suspicious osseous lesions are seen. IMPRESSION: 1. The cervix is likely normal for age, but is more full than often seen. Consider ultrasound for further evaluation as clinically indicated. Dictated by: Dictated on workstation # [id number]
[2019-02-17] MEDS ORDERED: DICY20TA10 PO (11:53)
[2019-02-17] MEDS ORDERED: DICYCLOMINE 10 MG (BENTYL) CAP PO SCH (12:00)
[2019-02-17] MEDS ORDERED: OXYC1TAB87 PO (12:24)
[2019-02-17 12:54] VITALS: BP 126/89
[2019-02-18] MEDS ORDERED: ONDA4TAB11 PO (01:54)
[2019-02-18] MEDS ORDERED: NAPR-1071 PO (01:54)
[2019-02-18] MEDS ORDERED: POLY119P5 PO (01:54)
== END 2019-02-17 12:54 | disposition home or self-care (01) ==
LOC: ER 09:51
DX: R10.33 Periumbilical pain (principal); F12.10 Cannabis abuse, uncomplicated; Z88.5 Allergy status to narcotic agent; Z90.89 Acquired absence of other organs
CPT/HCPCS: 36415; 74177; 80053; 80306; 81000; 84703; 85025; 87070; 87205; 87210; 87491; 87591; 96374

== ENCOUNTER 2019-02-18 00:07 | Emergency (ER) | payer MEDICAID ==
[~2019-02-18] VITALS: Ht 165.1 cm; Wt 70.8 kg
[~2019-02-18 00:07] MED LIST: DICY20TA10 PO; OXYC1TAB87 PO
--- NOTE | 2019-02-18 00:40 | ED Abdominal Pain ---
General Chief Complaint: Abdominal/GI Problems Stated Complaint: SEVERE ABD PAIN Source of Information: Patient, Spouse Exam Limitations: No Limitations History of Present Illness Date Seen by Provider: Feb 18, 2019 Time Seen by Provider: 00:28 Initial Comments Patient present to ER by private conveyance with chief complaint of abdominal pain for the past 2 weeks. She went to her CASTING MACHINE SET UP OPERATOR last week and was told that it might be endometriosis and if everything else was ruled out she would schedule her for laparoscopic surgery. Unfortunately CASTING MACHINE SET UP OPERATOR is out of the office's week so she has not been able to schedule that. She went to another doctor her primary care doctor and was told she didn't know what was wrong with her. She came to the ER Saturday, yesterday morning and was seen and had a extensive workup and told everything looked normal except for a swollen appearance of the cervix. She is not having any dysuria, discharge, nausea that time but now her pain is 10 out of 10 and she is feeling nauseated after taking the Percocet which she said did nothing for her pain. She does not have a history of abdominal trauma, she did have a times one. No other known medical history. She is known to Dr. Mayers, CASTING MACHINE SET UP OPERATOR in [place], [place]. Allergies and Home Medications Allergies Coded Allergies: codeine (Verified Allergy, Unknown, 02/17/19) Home Medications Dicyclomine HCl 20 Mg Tablet, 20 MG PO TID Prescribed by: MIA BLAIR on 02/17/19 1153 Oxycodone HCl/Acetaminophen 1 Each Tablet, 1 TAB PO Q4H Prescribed by: MIA BLAIR on 02/17/19 1224 Patient Home Medication List Home Medication List Reviewed: Yes Review of Systems Review of Systems Constitutional: No chills, No diaphoresis EENTM: No Blurred Vision, No Double Vision Respiratory: Denies Cough, Denies Orthopnea Cardiovascular: Denies Chest Pain Gastrointestinal: See HPI; Denies Abdomen Distended; Abdominal Pain, Constipated; Denies Diarrhea; Nausea; Denies Vomiting Genitourinary: Denies Burning, Denies Discharge Musculoskeletal: No back pain, No joint pain Past Bsccbdi-Wxzhun-Ubisne Hx Patient Social History Alcohol Use: Occasionally Uses Recreational Drug Use: Yes Drug of Choice: marijuana Recent Foreign Travel: No Contact w/Someone Who Travel: No Recent Hopitalizations: No Physical Abuse: No Sexual Abuse: No Mistreated: No Fear: No Immunizations Up To Date Tetanus Booster (TDap): Unknown PED Vaccines UTD: Yes Seasonal Allergies Seasonal Allergies: No Past Medical History Surgeries: Yes (SPINE) Appendectomy, Section, Nose, Orthopedic Respiratory: No Cardiac: No Neurological: No Genitourinary: No Gastrointestinal: No Musculoskeletal: No Endocrine: No HEENT: No Cancer: No Psychosocial: No Integumentary: No Blood Disorders: No Physical Exam Vital Signs Vital Signs - First Documented 02/18/19 00:27 Temp 97.8 Pulse 74 Resp 18 B/P (MAP) 134/88 (103) O2 Delivery Room Air Capillary Refill : Height/Weight/BMI Height: 5'5.00" Weight: 156lbs. oz. 70.704602nw; BMI Method:Stated General Appearance: WD/WN, no apparent distress HEENT: PERRL/EOMI, normal ENT inspection, pharynx normal Neck: full range of motion, normal inspection Respiratory: lungs clear, normal breath sounds, no respiratory distress, no accessory muscle use Cardiovascular: normal peripheral pulses, regular rate, rhythm Peripheral Pulses: 2+ Radial Pulses (R), 2+ Radial Pulses (L) Gastrointestinal: normal bowel sounds, soft, guarding (left upper quadrant and lower quadrant); No rebound; tenderness (left upper and lower quadrant), mass (tender palpable descending colon); No hepatomegaly, No spleenomegaly Neurologic/Psychiatric: alert, normal mood/affect, oriented x 3 Skin: normal color, warm/dry Progress/Results/Core Measures Results/Orders Lab Results Laboratory Tests Test 02/18/19 00:45 02/18/19 00:55 Range/Units White Blood Count 9.8 4.3-11.0 10^3/uL Red Blood Count 4.32 L 4.35-5.85 10^6/uL Hemoglobin 13.2 11.5-16.0 G/DL Hematocrit 38 35-52 % Mean Corpuscular Volume 88 80-99 FL Mean Corpuscular Hemoglobin 31 25-34 PG Mean Corpuscular Hemoglobin Concent 35 32-36 G/DL Red Cell Distribution Width 11.9 10.0-14.5 % Platelet Count 384 130-400 10^3/uL Mean Platelet Volume 9.2 7.4-10.4 FL Neutrophils (%) (Auto) 55 42-75 % Lymphocytes (%) (Auto) 36 12-44 % Monocytes (%) (Auto) 8 0-12 % Eosinophils (%) (Auto) 1 0-10 % Basophils (%) (Auto) 0 0-10 % Neutrophils # (Auto) 5.4 1.8-7.8 X 10^3 Lymphocytes # (Auto) 3.5 1.0-4.0 X 10^3 Monocytes # (Auto) 0.8 0.0-1.0 X 10^3 Eosinophils # (Auto) 0.1 0.0-0.3 10^3/uL Basophils # (Auto) 0.0 0.0-0.1 10^3/uL Sodium Level 140 135-145 MMOL/L Potassium Level 3.5 L 3.6-5.0 MMOL/L Chloride Level 108 H 98-107 MMOL/L Carbon Dioxide Level 19 L 21-32 MMOL/L Anion Gap 13 5-14 MMOL/L Blood Urea Nitrogen 13 7-18 MG/DL Creatinine 0.88 0.60-1.30 MG/DL Estimat Glomerular Filtration Rate > 60 BUN/Creatinine Ratio 15 Glucose Level 98 70-105 MG/DL Calcium Level 9.5 8.5-10.1 MG/DL Corrected Calcium 9.1 8.5-10.1 MG/DL Total Bilirubin 1.1 H 0.1-1.0 MG/DL Aspartate Amino Transf (AST/SGOT) 17 5-34 U/L Alanine Aminotransferase (ALT/SGPT) 13 0-55 U/L Alkaline Phosphatase 54 40-136 U/L C-Reactive Protein High Sensitivity 0.06 0.00-0.50 MG/DL Total Protein 7.3 6.4-8.2 GM/DL Albumin 4.5 3.2-4.5 GM/DL Urine Color YELLOW Urine Clarity CLEAR Urine pH 6.5 5-9 Urine Specific Bluebell 1.010 L 1.016-1.022 Urine Protein NEGATIVE NEGATIVE Urine Glucose (UA) NEGATIVE NEGATIVE Urine Ketones 3+ H NEGATIVE Urine Nitrite NEGATIVE NEGATIVE Urine Bilirubin NEGATIVE NEGATIVE Urine Urobilinogen NORMAL NORMAL MG/DL Urine Leukocyte Esterase NEGATIVE NEGATIVE Urine RBC (Auto) NEGATIVE NEGATIVE Urine RBC NONE /HPF Urine WBC NONE /HPF Urine Squamous Epithelial Cells 2-5 /HPF Urine Crystals NONE /LPF Urine Bacteria TRACE /HPF Urine Casts NONE /LPF Urine Mucus NEGATIVE /LPF Urine Culture Indicated NO My Orders Orders - LIZA BRANCH Ua Culture If Indicated (02/18/19 00:10) Urine Bedside (02/18/19 00:10) Ketorolac Injection (Toradol Injection) (02/18/19 00:45) Ondansetron Injection (Zofran Injectio (02/18/19 00:45) Cbc With Automated Diff (02/18/19 00:36) Comprehensive Metabolic Panel (02/18/19 00:36) Hs C Reactive Protein (02/18/19 00:36) Medications Given in ED Current Medications Medications Dose Ordered Sig/Favian Route Start Time Stop Time Status Last Admin Dose Admin Ketorolac Tromethamine 30 mg Q6H PRN IVP 02/18/19 00:45 8 00:44 02/18/19 00:50 30 MG Ondansetron HCl 4 mg ONCE ONCE IVP 02/18/19 00:45 02/18/19 00:46 DC 02/18/19 00:49 4 MG Vital Signs/I&O 02/18/19 00:27 Temp 97.8 Pulse 74 Resp 18 B/P (MAP) 134/88 (103) O2 Delivery Room Air Progress Progress Note : Time: 01:30 Progress Note Her nausea is gone with Zofran. Her pain is significantly improved with the NSAIDs. Endometriosis would be a very likely cause. There is no signs of inflammation or infection on her laboratory examination. CT from less than 24 hours ago was reviewed showing symmetrical fullness likely normal but would re commend outpatient ultrasound if warranted. We will provide her with a prescription for MiraLAX for her constipation which is likely induced by the Percocet and poor fluid intake. Zofran for nausea and Naprosyn for pain. Departure Impression Primary Impression: Abdominal pain Qualified Codes: R10.32 - Left lower quadrant pain Additional Impression: Constipation Qualified Codes: K59.00 - Constipation, unspecified Disposition: 01 HOME, SELF-CARE Condition: Improved Departure-Patient Inst. Decision time for Depature: 01:45 Referrals: [facility] (PCP) Primary Care Physician KIMMY XIE APRN (Family) Primary Care Physician Patient Instructions: Endometriosis (DC) Add. Discharge Instructions: Naproxen 1 tablet twice daily as needed for pain. Do not mix with ibuprofen. Tylenol 1000 mg every 8 hours as needed for pain. Heating pads can be helpful. Follow-up with your CASTING MACHINE SET UP OPERATOR. MiraLAX 1-2 doses daily until you're having regular bowel movements. Zofran 1 tablet under the tongue every 6 hours as needed for nausea. Return to the nearest ER if you begin to experience pain that is intractable despite the above medications, fever or continued difficulty having a bowel movement. All discharge instructions reviewed with patient and/or family. Voiced understanding. Scripts Polyethylene Glycol 3350 (Miralax) 119 Gm Powder 17 GM PO BID PRN PRN for CONSTIPATION-1ST LINE, #1 EA 0 Refills Prov: LIZA BRANCH 02/18/19 Ondansetron (Ondansetron Odt) 4 Mg Tab.rapdis 4 MG PO Q6H PRN for NAUSEA/VOMITING, #8 TAB 0 Refills Prov: LIZA BRANCH 02/18/19 Naproxen (Naprosyn) 500 Mg Tablet 500 MG PO BID PRN for PAIN-MODERATE for 14 Days, #30 TAB 0 Refills Prov: LIZA BRANCH 02/18/19 Work/School Note: Work Release Form Date Seen in the Emergency Department: Feb 18, 2019 Return to Work: Feb 19, 2019 Restrictions: No Restrictions LIZA BRANCH Feb 18, 2019 00:39
--- OUTSIDE RECORDS SUMMARY | 2019-02-18 00:41 | XMS REPORT | Continuity of Care Document ---
Demographics Preferred Language Unknown Marital Status Unknown Bahai Affiliation Unknown Race Unknown Ethnic Group Unknown [...] VAGINAL DISCHARGE 03/12/2012 THOMAS GARCIA MD V72.31 ACCOUNTING CLERKS SUPERVISOR EXAM, ROUTINE 03/12/2012 THOMAS GARCIA MD 623.5 VAGINAL DISCHARGE 03/12/2012 THOMAS GARCIA MD V72.31 ACCOUNTING CLERKS SUPERVISOR EXAM, ROUTINE 03/12/2012 THOMAS GARCIA MD 623.5 VAGINAL DISCHARGE 03/12/2012 JOSE MD, THOMAS A V72.31 ACCOUNTING CLERKS SUPERVISOR EXAM, ROUTINE 03/12/2012 623.5 VAGINAL DISCHARGE 03/12/2012 V72.31 ACCOUNTING CLERKS SUPERVISOR EXAM, ROUTINE 03/12/2012 THOMAS GARCIA MD 623.5 VAGINAL DISCHARGE 03/12/2012 THOMAS GARCIA MD V72.31 ACCOUNTING CLERKS SUPERVISOR EXAM, ROUTINE 03/12/2012 THOMAS GARCIA MD 623.5 VAGINAL DISCHARGE 03/12/2012 THOMAS GARCIA MD V72.31 ACCOUNTING CLERKS SUPERVISOR EXAM, ROUTINE 03/12/2012 THOMAS GARCIA MD 623.5 VAGINAL DISCHARGE 03/12/2012 THOMAS GARCIA MD V72.31 ACCOUNTING CLERKS SUPERVISOR EXAM, ROUTINE 03/12/2012 THOMAS GARCIA MD 623.5 VAGINAL DISCHARGE 03/12/2012 THOMAS GARCIA MD V72.31 ACCOUNTING CLERKS SUPERVISOR EXAM, ROUTINE 03/12/2012 THOMAS GARCIA MD 623.5 VAGINAL DISCHARGE 03/12/2012 THOMAS GARCIA MD V72.31 ACCOUNTING CLERKS SUPERVISOR EXAM, ROUTINE 03/12/2012 CHANDANA PARACHUTE PACKER, KULWINDER A 623.5 VAGINAL DISCHARGE 03/12/2012 CHANDANA PARACHUTE PACKER, KULWINDER A V72.31 ACCOUNTING CLERKS SUPERVISOR EXAM, ROUTINE 03/12/2012 CHANDANA PARACHUTE PACKER, KULWINDER A 623.5 VAGINAL DISCHARGE 03/12/2012 CHANDANA PARACHUTE PACKER, KULWINDER A V72.31 ACCOUNTING CLERKS SUPERVISOR EXAM, ROUTINE 04/28/2012 THOMAS GARCIA MD [...] Procedures Code [place] [address] URINE TEST (IN-HOUSE) 08/26/2012 J1055 DEPO-PROVERA INJ 150 MG 08/26/2012 02026 THERAPUTIC INJ SQ/IM 08/26/2012 49596 ROUTINE VENIPUNCTURE 09/02/2012 08818 TRICHOMONAS (IN-HOUSE) 09/02/2012 01424 HIV ANTIBODIES (RML) 09/03/2012 95389 SYPHILLIS-[facility] 09/05/2012 49760 HEP C ANTIBODY ([facility]) 09/05/2012 52580 GC/CHLAM PROBE ([facility]) 09/05/2012 Q0091 PAP SMEAR OBTAIN SMEAR 09/05/2012 61394 PAP SMEAR 09/05/2012 51000 CULTURE UROGENITAL 09/05/2012 Q0091 PAP SMEAR OBTAIN SMEAR 09/10/2012 59320 PAP SMEAR 09/11/2012 65589 URINE TEST (IN-HOUSE) 12/30/2012 78483 THERAPUTIC INJ SQ/IM 12/30/2012 J1050 DEPO PROVERA 12/30/2012 19736 URINE TEST (IN-HOUSE) 05/20/2013 44234 THERAPUTIC INJ SQ/IM 05/20/2013 J1050 DEPO PROVERA 05/20/2013 17001 THERAPUTIC INJ SQ/IM 08/05/2013 76206 TEST, URINE (IN-HOUSE) 08/05/2013 J1050 DEPO PROVERA 08/05/2013 54258 THERAPUTIC INJ SQ/IM 11/10/2013 21051 TEST, URINE (IN-HOUSE) 11/10/2013 J1050 DEPO PROVERA 11/10/2013 73172 CULTURE UROGENITAL 01/14/2014 68983 PAP SMEAR 01/14/2014 Q0091 PAP SMEAR OBTAIN SMEAR 01/14/2014 66807 SYPHILLIS-[facility] 05/12/2014 22118 HIV ([facility]) 05/12/2014 10435 GC/CHLAM PROBE ([facility]) 05/12/2014 90327 TEST, URINE (IN-HOUSE) 05/12/2014 67164 TRICHOMONAS (IN-HOUSE) 05/12/2014 24951 A1C (RML) 05/13/2014 18718 CULTURE UROGENITAL 05/16/2014 Results Test Result Range RPR, Rfx Qn RPR/Confirm TP - 11/18/18 17:00 RPR Non Reactive Non Reactive HCV Antibody - 11/18/18 17:00 Hep C Virus Ab <0.1 s/co ratio 0.0-0.9 HBsAg Screen - 11/18/18 17:00 HBsAg Screen Negative Negative Encounters ACCT No. Visit Date/Time Discharge Status Pt. Type Provider Facility Loc./Unit Complaint [id number] 11/20/2018 06:05:00 Document Registration [id number] 11/20/2018 08:11:00 Document Registration [id number] 11/22/2018 06:06:00 Document Registration [id number] 06/24/2014 15:52:00 06/24/2014 23:59:59 CLS Outpatient KULWINDER ELLINGTON APRN [id number] 05/12/2014 15:40:00 05/12/2014 23:59:59 CLS Outpatient KULWINDER ELLINGTON APRN [id number] 01/13/2014 09:31:00 01/13/2014 23:59:59 CLS Outpatient THOMAS GARCIA MD [id number] 11/10/2013 10:52:00 11/10/2013 23:59:59 CLS Outpatient THOMAS GARCIA MD [id number] 08/05/2013 11:39:00 08/05/2013 23:59:59 CLS Outpatient THOMAS GARCIA MD [id number] 05/20/2013 11:52:00 05/20/2013 23:59:59 CLS Outpatient THOMAS GARCIA MD [id number] 12/30/2012 12:16:00 12/30/2012 23:59:59 CLS Outpatient THOMAS GARCIA MD [id number] 10/08/2012 11:25:00 10/08/2012 23:59:59 CLS Outpatient [id number] 09/10/2012 11:35:00 09/10/2012 23:59:59 CLS Outpatient THOMAS GARCIA MD [id number] 09/02/2012 14:52:00 09/02/2012 23:59:59 CLS Outpatient THOMAS GARCIA MD [id number] 08/26/2012 11:47:00 08/26/2012 23:59:59 CLS Outpatient THOMAS GARCIA MD [id number] 02/11/2019 16:53:23 02/11/2019 23:59:59 CLS Outpatient Riana, Aliza [id number] 11/18/2018 16:58:45 11/18/2018 23:59:59 CLS Outpatient Aliza Mayers [id number] 10/07/2017 17:35:49 10/07/2017 23:59:59 CLS Outpatient Aliza Mayers [id number] 05/21/2017 16:03:07 05/21/2017 23:59:59 CLS Outpatient Gretchen Santos [id number] 03/18/2017 16:57:43 03/18/2017 23:59:59 CLS Outpatient Riana, Aliza [id number] 03/08/2015 15:06:44 03/08/2015 23:59:59 CLS Outpatient Bushra Whitney [id number] 02/16/2019 13:40:00 ACT Out[facility]
[2019-02-18] MEDS ORDERED: ONDANSETRON 4 MG/2 ML (SDV) Z0FRAN IVP ONE (00:45)
[2019-02-18] MEDS ORDERED: KETOROLAC 30 MG/ML VIAL IVP PRN (00:45)
[2019-02-18 00:57] LABS: BASOPHILS % (AUTO) 0 % (0-10); EOSINOPHILS # (AUTO) 0.1 10^3/uL (0.0-0.3); EOSINOPHILS % (AUTO) 1 % (0-10); HEMATOCRIT 38 % (35-52); HEMOGLOBIN 13.2 G/DL (11.5-16.0); LYMPHOCYTES # (AUTO) 3.5 X 10^3 (1.0-4.0); LYMPHOCYTES % (AUTO) 36 % (12-44); MEAN CORPUSCULAR HEMOGLOBIN 31 PG (25-34); MEAN CORPUSCULAR HGB CONC 35 G/DL (32-36); MEAN CORPUSCULAR VOLUME 88 FL (80-99); MEAN PLATELET VOLUME 9.2 FL (7.4-10.4); MONOCYTES # (AUTO) 0.8 X 10^3 (0.0-1.0); MONOCYTES % (AUTO) 8 % (0-12); NEUTROPHILS # (AUTO) 5.4 X 10^3 (1.8-7.8); NEUTROPHILS % (AUTO) 55 % (42-75); PLATELET COUNT 384 10^3/uL (130-400); RED CELL DISTRIBUTION WIDTH 11.9 % (10.0-14.5); WHITE BLOOD COUNT 9.8 10^3/uL (4.3-11.0)
[2019-02-18 01:03] LABS: BILIRUBIN,URINE NEGATIVE (NEGATIVE); CLARITY,URINE CLEAR; COLOR,URINE YELLOW; GLUCOSE, URINE (UA) NEGATIVE (NEGATIVE); KETONES,URINE 3+ (NEGATIVE); LEUKOCYTE ESTERASE ,URINE NEGATIVE (NEGATIVE); NITRITE,URINE NEGATIVE (NEGATIVE); PH,URINE 6.5 (5-9); PROTEIN,URINE NEGATIVE (NEGATIVE); UROBILINOGEN,URINE NORMAL (NORMAL)
[2019-02-18 01:11] LABS: BACTERIA,URINE TRACE /HPF
[2019-02-18 01:15] LABS: ALANINE AMINOTRANSFERASE 13 U/L (0-55); ALBUMIN 4.5 GM/DL (3.2-4.5); ALKALINE PHOSPHATASE 54 U/L (40-136); BILIRUBIN,TOTAL 1.1 MG/DL (0.1-1.0); BUN/CREATININE RATIO 15; CALCIUM 9.5 MG/DL (8.5-10.1); CARBON DIOXIDE 19 MMOL/L (21-32); CHLORIDE 108 MMOL/L (98-107); CREATININE SERUM 0.88 MG/DL (0.60-1.30); GFR ESTIMATED > 60; GLUCOSE 98 MG/DL (70-105); POTASSIUM 3.5 MMOL/L (3.6-5.0); SODIUM 140 MMOL/L (135-145); TOTAL PROTEIN 7.3 GM/DL (6.4-8.2)
[2019-02-18] MEDS ORDERED: ONDA4TAB11 PO (01:54)
[2019-02-18] MEDS ORDERED: POLY119P5 PO (01:54)
[2019-02-18] MEDS ORDERED: NAPR-1071 PO (01:54)
[2019-02-18 02:02] VITALS: BP 125/87
== END 2019-02-18 02:04 | disposition home or self-care (01) ==
LOC: EDUNIT# 00:07 → ER 00:09
DX: K59.00 Constipation, unspecified (principal); Z88.5 Allergy status to narcotic agent; Z90.49 Acquired absence of other specified parts of digestive tract
CPT/HCPCS: 36415; 80053; 81000; 84703; 85025; 86141; 96374; 96375

== ENCOUNTER → 2019-03-20 | Outpatient (CLI) | payer MEDICAID ==
[~2019-03-20] MED LIST changes: +NAPR-1071 PO; +ONDA4TAB11 PO; +POLY119P5 PO
--- NOTE | 2019-03-20 09:01 | Diagnostic Imaging Report ---
Clinical indication: Patient with flatulence and dyspepsia. Exam: Ultrasound of the right upper quadrant. Comparison: CT scan of the abdomen and pelvis performed with IV contrast dated 02/17/2019. Findings: The pancreas is unremarkable with normal echogenicity and configuration. The liver has normal echogenicity and echotexture. The liver surface is smooth. The main portal vein demonstrates normal hepatopedal flow. The liver measures 14.5 cm. There is no intrahepatic or extrahepatic ductal dilation. Common bile duct measures 2.4 mm. The gallbladder is unremarkable with no stones or sludge. There is no pericholecystic fluid or significant gallbladder wall thickening. There is no sonographic Nicole sign. The right kidney has normal cortical thickness with no mass or hydronephrosis. Right kidney measures 10.4 cm in craniocaudal dimension. There is no ascites. Limited visualization of the abdominal aorta and IVC are grossly unremarkable. Impression: Unremarkable right upper quadrant ultrasound. Dictated by: Dictated on workstation # [id number]
== END ==
LOC: RAD 08:00
PROVIDERS: ATTEND Nurse Practitioner Family
DX: R10.13 Epigastric pain (principal); R14.3 Flatulence; K29.70 Gastritis, unspecified, without bleeding
CPT/HCPCS: 76705